=== PATIENT | female | born 1990 | race Caucasian/White ===

== ENCOUNTER 2016-03-05 08:51 | Emergency (ER) | payer OTHER ==
[~2016-03-05] VITALS: Ht 154.9 cm; Wt 81.6 kg
[~2016-03-05 08:51] MED LIST: BACTRIM DS 8001 TA1 PO; CARDIZEM CD120 MG PO; COLACE100 MG PO; FERROUS SULFATE1 GRA PO; HUMULIN 70/30 710 M1; HYDROCODONE BIT1 T11 PO; LANTUS100 U/ML SC; LEVEMIR10 ML SC; LISINOPRIL5 MG PO; LOMOTIL 0.025 M1 TA1 PO; MACROBID100 M1 PO; MOTRIN IB200 MG PO; NOVOLOG 70/30 M10 ML SC; NOVOLOG100 U/ML SC; PERCOCET 500 MG1 TAB; PYRIDIUM200 MG PO; SEPTRA DS 800 M1 TAB PO; ZOFRAN ODT4 MG SL
[2016-03-05] MEDS ORDERED: HUMULIN N100 UNIT/1 SQ ×2 (09:09→09:10)
[2016-03-05 11:17] VITALS: BP 148/86
== END 2016-03-05 11:53 | disposition home or self-care (01) ==
LOC: ED 08:51
DX: R51 Headache (principal); E11.9 Type 2 diabetes mellitus without complications; I10 Essential (primary) hypertension; F17.200 Nicotine dependence, unspecified, uncomplicated; Z79.4 Long term (current) use of insulin

== ENCOUNTER 2016-03-06 11:47 | Inpatient (IN) | payer OTHER ==
[~2016-03-06] VITALS: Ht 157.5 cm; Wt 88.0 kg
[~2016-03-06 11:47] MED LIST changes: +HUMULIN N100 UNIT/1 SQ
[2016-03-06 12:54] LABS: BASO # 0.1 10*3/uL (0.0-0.1); BASO % 0.6 % (0.0-1.0); EOS # 0.2 10*3/uL (0.0-0.4); EOS % 2.2 % (1.0-4.0); HEMATOCRIT 45.4 % (37.0-47.0); HEMOGLOBIN 15.8 g/dl (12.0-16.0); IG # 0.1 10*3/uL (0.0-0.1); LYMPH # 3.9 10*3/uL (1.3-4.4); LYMPH % 36.6 % (27.0-41.0); MEAN CELL VOLUME 79.5 fl (81.0-99.0); MEAN CORPUSCULAR HGB 27.7 pg (27.0-31.0); MEAN CORPUSCULAR HGB CONC 34.8 g/dl (33.0-37.0); MEAN PLATELET VOLUME 8.8 fl (9.6-12.3); MONO # 0.6 10*3/uL (0.1-1.0); MONO % 5.5 % (3.0-9.0); NEUT # 5.8 10*3/uL (2.3-7.9); NEUT % 54.5 % (47.0-73.0); PLATELET COUNT AUTOMATED 299 10*3/uL (130-400); RED BLOOD COUNT 5.71 10*6/uL (4.10-5.10); RED CELL DISTRI WIDTH 11.4 % (0-14.5); WHITE BLOOD COUNT 10.6 10*3/uL (4.8-10.8)
[2016-03-06 13:00] VITALS: BP 165/102
[2016-03-06 13:03] LABS: INTERNATIONAL NORM RATIO 0.9 (2.0-3.5); PROTHROMBIN TIME 9.7 SECONDS (9.0-12.4)
[2016-03-06 13:11] LABS: ALBUMIN 2.9 gm/dl (3.1-4.5); ALKALINE PHOSPHATASE 111 U/L (45-117); BILIRUBIN, TOTAL 0.2 mg/dl (0.2-1.0); BUN 16 mg/dl (7-24); CARBON DIOXIDE 29 mmol/L (21-32); CHLORIDE 104 mmol/L (98-107); EST GLOM FILT AFRICAN AMERICAN > 60 ml/min; GLUCOSE 106 mg/dL (65-99); MAGNESIUM 1.9 mg/dL (1.5-2.1); POTASSIUM 3.9 mmol/L (3.5-5.1); SGOT/AST 11 IU/L (3-35); SGPT/ALT 21 U/L (12-78); SODIUM 143 mmol/L (136-145); TOTAL PROTEIN 6.8 gm/dL (6.4-8.2)
[2016-03-06 13:12] VITALS: BP 155/91
[2016-03-06 13:14] LABS: TROPONIN I < 0.015 ng/ml (<0.5)
[2016-03-06 16:00] VITALS: BP 135/94
[2016-03-06 20:00] VITALS: BP 112/60
[2016-03-06 22:26] LABS: URINE AMPHETAMINES < 1000 (1000ng/ml); URINE BARBITURATES < 200 (200ng/ml); URINE COCAINE < 300 (300ng/ml)
[2016-03-07] VITALS: BP 137/83
[2016-03-07 07:35] LABS: BASO # 0.1 10*3/uL (0.0-0.1); BASO % 0.5 % (0.0-1.0); EOS # 0.1 10*3/uL (0.0-0.4); HEMATOCRIT 47.2 % (37.0-47.0); HEMOGLOBIN 16.1 g/dl (12.0-16.0); IG # 0.1 10*3/uL (0.0-0.1); LYMPH # 2.6 10*3/uL (1.3-4.4); MEAN CELL VOLUME 80.3 fl (81.0-99.0); MEAN CORPUSCULAR HGB 27.4 pg (27.0-31.0); MEAN CORPUSCULAR HGB CONC 34.1 g/dl (33.0-37.0); MEAN PLATELET VOLUME 9.1 fl (9.6-12.3); MONO # 0.6 10*3/uL (0.1-1.0); MONO % 4.4 % (3.0-9.0); NEUT # 9.5 10*3/uL (2.3-7.9); NEUT % 73.6 % (47.0-73.0); PLATELET COUNT AUTOMATED 297 10*3/uL (130-400); RED BLOOD COUNT 5.88 10*6/uL (4.10-5.10); RED CELL DISTRI WIDTH 11.5 % (0-14.5)
[2016-03-07 08:00] VITALS: BP 146/90
[2016-03-07 08:01] LABS: HEMOGLOBIN A1c 9.4 % (4.8-5.6)
[2016-03-07 08:17] LABS: BUN 20 mg/dl (7-24); CARBON DIOXIDE 30 mmol/L (21-32); CHLORIDE 103 mmol/L (98-107); CHOLESTEROL 186 mg/dL (<200); EST GLOM FILT AFRICAN AMERICAN > 60 ml/min; FREE T4 1.01 ng/dl (0.76-1.46); GLUCOSE 130 mg/dL (65-99); HDL CHOLESTEROL 51 mg/dl (40-60); LDL CHOLESTEROL 84 mg/dL (9-159); MAGNESIUM 1.9 mg/dL (1.5-2.1); POTASSIUM 4.1 mmol/L (3.5-5.1); SODIUM 140 mmol/L (136-145); THYROID STIM HORMONE (HS) 0.957 uIU/ml (0.358-4.75); TRIGLYCERIDES 257 mg/dl (<150); VLDL CHOLESTEROL 51 mg/dL (6-40)
[2016-03-07 08:33] LABS: FOLIC ACID 18.16 ng/mL (>5.38)
[2016-03-07 12:00] VITALS: BP 141/89
[2016-03-07] MEDS ORDERED: PRINIVIL10 MG PO (13:07)
== END 2016-03-07 13:36 | disposition home or self-care (01) | DRG 305 ==
LOC: ED 11:47 → 5E 14:09 → EDHOLD 14:09 → 5E 14:51
PROVIDERS: Internal Medicine; Registered Nurse
DX: I16.0 Hypertensive urgency (principal); E44.0 Moderate protein-calorie malnutrition; E66.9 Obesity, unspecified; Z98.51 Tubal ligation status; Z79.4 Long term (current) use of insulin; Z68.33 Body mass index [BMI] 33.0-33.9, adult

== ENCOUNTER → 2016-03-10 | Outpatient (CLI) | payer OTHER ==
[~2016-03-10] MED LIST changes: +PRINIVIL10 MG PO
== END | disposition home or self-care (01) ==
LOC: RESCLI 01:34
DX: I10 Essential (primary) hypertension (principal); E10.65 Type 1 diabetes mellitus with hyperglycemia; E78.5 Hyperlipidemia, unspecified

== ENCOUNTER → 2016-06-24 | Outpatient (CLI) | payer OTHER | END | disposition home or self-care (01) | LOC: RESCLI 06-23 01:04 | DX: E10.65 Type 1 diabetes mellitus with hyperglycemia (principal); I10 Essential (primary) hypertension; E78.5 Hyperlipidemia, unspecified; E55.9 Vitamin D deficiency, unspecified; R53.83 Other fatigue ==

== ENCOUNTER 2016-12-14 18:56 | Emergency (ER) | payer OTHER ==
[~2016-12-14] VITALS: Ht 152.4 cm; Wt 75.7 kg
[2016-12-14 19:46] LABS: BASO % 0.3 % (0.0-1.0); EOS % 0.3 % (1.0-4.0); HEMATOCRIT 43.8 % (37.0-47.0); HEMOGLOBIN 15.3 g/dl (12.0-16.0); LYMPH # 2.2 10*3/uL (1.3-4.4); LYMPH % 23.4 % (27.0-41.0); MEAN CELL VOLUME 80.1 fl (81.0-99.0); MEAN CORPUSCULAR HGB CONC 34.9 g/dl (33.0-37.0); MEAN PLATELET VOLUME 9.3 fl (9.6-12.3); MONO # 0.4 10*3/uL (0.1-1.0); MONO % 4.5 % (3.0-9.0); NEUT # 6.6 10*3/uL (2.3-7.9); NEUT % 70.7 % (47.0-73.0); PLATELET COUNT AUTOMATED 293 10*3/uL (130-400); RED BLOOD COUNT 5.47 10*6/uL (4.10-5.10); RED CELL DISTRI WIDTH 11.4 % (0-14.5); WHITE BLOOD COUNT 9.3 10*3/uL (4.8-10.8)
[2016-12-14 20:00] LABS: ALBUMIN 2.3 gm/dl (3.1-4.5); ALKALINE PHOSPHATASE 120 U/L (45-117); BUN 14 mg/dl (7-24); CHLORIDE 98 mmol/L (98-107); CREATININE 1.22 mg/dL (0.55-1.02); LIPASE 232 U/L (73-393); POTASSIUM 3.8 mmol/L (3.5-5.1); SGOT/AST 13 IU/L (3-35); SGPT/ALT 21 U/L (12-78); SODIUM 132 mmol/L (136-145); TOTAL PROTEIN 6.3 gm/dL (6.4-8.2)
[2016-12-14 20:14] LABS: BILIRUBIN NEGATIVE (NEGATIVE); BLOOD 1+ (NEGATIVE); CLARITY CLEAR (CLEAR); COLOR STRAW (YELLOW); GLUCOSE 3+ (NEGATIVE); KETONE NEGATIVE (NEGATIVE); LEUKO ESTERASE NEGATIVE (NEGATIVE); NITRITE NEGATIVE (NEGATIVE); PH 5.5 (5.0-9.0); SPECIFIC GRAVITY <= 1.005 (1.005-1.030); UROBILINOGEN 0.2 E.U./dl (0.2-1.0)
[2016-12-14 20:23] LABS: BACTERIA TRACE
[2016-12-14 21:04] VITALS: BP 126/85
== END 2016-12-14 22:09 | disposition home or self-care (01) ==
LOC: ED 18:56
PROVIDERS: Emergency Medicine Emergency Medical Services
DX: E10.65 Type 1 diabetes mellitus with hyperglycemia (principal); R80.9 Proteinuria, unspecified; I10 Essential (primary) hypertension; F17.200 Nicotine dependence, unspecified, uncomplicated; Z79.4 Long term (current) use of insulin; Z98.51 Tubal ligation status

== ENCOUNTER 2017-01-18 14:00 | Emergency (ER) | payer OTHER ==
[~2017-01-18] VITALS: Ht 154.9 cm; Wt 80.3 kg
[2017-01-18 14:08] VITALS: BP 138/90
[2017-01-18 14:51] LABS: BASO # 0.1 10*3/uL (0.0-0.1); BASO % 0.8 % (0.0-1.0); EOS # 0.2 10*3/uL (0.0-0.4); EOS % 2.3 % (1.0-4.0); HEMATOCRIT 42.9 % (37.0-47.0); LYMPH # 1.9 10*3/uL (1.3-4.4); MEAN CELL VOLUME 80.5 fl (81.0-99.0); MEAN CORPUSCULAR HGB 28.1 pg (27.0-31.0); MONO # 0.4 10*3/uL (0.1-1.0); MONO % 5.5 % (3.0-9.0); NEUT # 5.1 10*3/uL (2.3-7.9); PLATELET COUNT AUTOMATED 287 10*3/uL (130-400); RED BLOOD COUNT 5.33 10*6/uL (4.10-5.10); RED CELL DISTRI WIDTH 11.6 % (0-14.5); WHITE BLOOD COUNT 7.7 10*3/uL (4.8-10.8)
[2017-01-18] MEDS ORDERED: TOUJEO SOL300 UNIT/1 SQ (15:03)
[2017-01-18] MEDS ORDERED: NOVOLOG10 ML IV (15:03)
[2017-01-18 15:08] LABS: ALBUMIN 2.3 gm/dl (3.1-4.5); ALKALINE PHOSPHATASE 138 U/L (45-117); BUN 12 mg/dl (7-24); CHLORIDE 97 mmol/L (98-107); POTASSIUM 3.7 mmol/L (3.5-5.1); SGOT/AST 14 IU/L (3-35); SGPT/ALT 26 U/L (12-78); SODIUM 134 mmol/L (136-145)
== END 2017-01-18 15:48 | disposition home or self-care (01) ==
LOC: ED 14:00
PROVIDERS: Registered Nurse
DX: E10.65 Type 1 diabetes mellitus with hyperglycemia (principal); F17.200 Nicotine dependence, unspecified, uncomplicated; Z98.51 Tubal ligation status; Z79.4 Long term (current) use of insulin

== ENCOUNTER 2017-02-21 14:36 | Emergency (ER) | payer OTHER ==
[~2017-02-21] VITALS: Ht 154.9 cm; Wt 78.5 kg
[~2017-02-21 14:36] MED LIST changes: +NOVOLOG10 ML IV; +TOUJEO SOL300 UNIT/1 SQ
[2017-02-21 15:24] LABS: BILIRUBIN NEGATIVE (NEGATIVE); BLOOD 1+ (NEGATIVE); CLARITY CLEAR (CLEAR); COLOR YELLOW (YELLOW); GLUCOSE 3+ (NEGATIVE); KETONE NEGATIVE (NEGATIVE); LEUKO ESTERASE NEGATIVE (NEGATIVE); NITRITE NEGATIVE (NEGATIVE); SPECIFIC GRAVITY <= 1.005 (1.005-1.030); UROBILINOGEN 0.2 E.U./dl (0.2-1.0)
[2017-02-21 15:33] LABS: BASO # 0.1 10*3/uL (0.0-0.1); BASO % 0.7 % (0.0-1.0); EOS # 0.1 10*3/uL (0.0-0.4); EOS % 1.4 % (1.0-4.0); HEMATOCRIT 45.2 % (37.0-47.0); HEMOGLOBIN 16.2 g/dl (12.0-16.0); LYMPH # 2.4 10*3/uL (1.3-4.4); LYMPH % 23.3 % (27.0-41.0); MEAN CELL VOLUME 79.6 fl (81.0-99.0); MEAN CORPUSCULAR HGB 28.5 pg (27.0-31.0); MEAN CORPUSCULAR HGB CONC 35.8 g/dl (33.0-37.0); MEAN PLATELET VOLUME 9.2 fl (9.6-12.3); MONO # 0.5 10*3/uL (0.1-1.0); NEUT % 68.9 % (47.0-73.0); PLATELET COUNT AUTOMATED 328 10*3/uL (130-400); RED BLOOD COUNT 5.68 10*6/uL (4.10-5.10); RED CELL DISTRI WIDTH 11.6 % (0-14.5); WHITE BLOOD COUNT 10.1 10*3/uL (4.8-10.8)
[2017-02-21 15:40] LABS: BACTERIA 1+; EPITHELIAL CELLS 0-2; WBC 0-2 wbc/hpf (0-5)
[2017-02-21 15:47] LABS: ALBUMIN 2.3 gm/dl (3.1-4.5); ALKALINE PHOSPHATASE 166 U/L (45-117); BUN 21 mg/dl (7-24); CHLORIDE 94 mmol/L (98-107); POTASSIUM 4.3 mmol/L (3.5-5.1); SGOT/AST 39 IU/L (3-35); SGPT/ALT 47 U/L (12-78); SODIUM 131 mmol/L (136-145); TOTAL PROTEIN 6.8 gm/dL (6.4-8.2)
[2017-02-21] MEDS ORDERED: AMOXICILLIN500 M3 PO (16:52)
[2017-02-21 18:25] VITALS: BP 150/89
== END 2017-02-21 18:09 | disposition home or self-care (01) ==
LOC: ED 14:36
PROVIDERS: Physician Assistant
DX: J02.9 Acute pharyngitis, unspecified (principal); E10.10 Type 1 diabetes mellitus with ketoacidosis without coma; E10.65 Type 1 diabetes mellitus with hyperglycemia; I10 Essential (primary) hypertension; F17.200 Nicotine dependence, unspecified, uncomplicated; Z79.4 Long term (current) use of insulin

== ENCOUNTER 2017-03-20 17:53 | Emergency (ER) | payer OTHER ==
[~2017-03-20] VITALS: Ht 157.4 cm; Wt 76.2 kg
[~2017-03-20 17:53] MED LIST changes: +AMOXICILLIN500 M3 PO
[2017-03-20 18:07] VITALS: BP 150/94
[2017-03-20] MEDS ORDERED: PENICILLIN VK500 MG PO (18:18)
[2017-03-20] MEDS ORDERED: NAPROSYN500 MG PO (18:18)
[2017-03-20] MEDS ORDERED: ZOFRAN4 MG PO (18:18)
== END 2017-03-20 18:28 | disposition home or self-care (01) ==
LOC: ED 17:53
DX: K04.7 Periapical abscess without sinus (principal); E11.65 Type 2 diabetes mellitus with hyperglycemia; I10 Essential (primary) hypertension; E66.9 Obesity, unspecified; Z68.39 Body mass index [BMI] 39.0-39.9, adult; Z79.4 Long term (current) use of insulin; Z98.51 Tubal ligation status; Z98.890 Other specified postprocedural states; Z79.899 Other long term (current) drug therapy

== ENCOUNTER 2017-06-24 06:23 | Inpatient (IN) | payer OTHER ==
[~2017-06-24] VITALS: Ht 162.5 cm; Wt 87.5 kg
[~2017-06-24 06:23] MED LIST changes: +NAPROSYN500 MG PO; +PENICILLIN VK500 MG PO; +ZOFRAN4 MG PO
[2017-06-24 06:26] VITALS: BP 157/112
[2017-06-24 07:01] LABS: BASO # 0.1 10*3/uL (0.0-0.1); BASO % 0.5 % (0.0-1.0); EOS # 0.2 10*3/uL (0.0-0.4); EOS % 1.2 % (1.0-4.0); HEMATOCRIT 46.3 % (37.0-47.0); HEMOGLOBIN 16.3 g/dl (12.0-16.0); LYMPH # 3.3 10*3/uL (1.3-4.4); LYMPH % 25.1 % (27.0-41.0); MEAN CELL VOLUME 80.1 fl (81.0-99.0); MEAN CORPUSCULAR HGB 28.2 pg (27.0-31.0); MEAN CORPUSCULAR HGB CONC 35.2 g/dl (33.0-37.0); MONO # 0.6 10*3/uL (0.1-1.0); MONO % 4.9 % (3.0-9.0); NEUT # 8.8 10*3/uL (2.3-7.9); NEUT % 67.8 % (47.0-73.0); PLATELET COUNT AUTOMATED 376 10*3/uL (130-400); RED BLOOD COUNT 5.78 10*6/uL (4.10-5.10); RED CELL DISTRI WIDTH 11.4 % (0-14.5); WHITE BLOOD COUNT 12.9 10*3/uL (4.8-10.8)
[2017-06-24 07:08] LABS: BILIRUBIN NEGATIVE (NEGATIVE); BLOOD 2+ (NEGATIVE); CLARITY SL CLOUDY (CLEAR); COLOR YELLOW (YELLOW); GLUCOSE 3+ (NEGATIVE); KETONE 1+ (NEGATIVE); LEUKO ESTERASE NEGATIVE (NEGATIVE); NITRITE NEGATIVE (NEGATIVE); PH 5.5 (5.0-9.0); UROBILINOGEN 0.2 E.U./dl (0.2-1.0)
[2017-06-24 07:18] VITALS: BP 152/104
[2017-06-24 07:21] LABS: ALBUMIN 2.9 gm/dl (3.1-4.5); ALKALINE PHOSPHATASE 157 U/L (45-117); BUN 21 mg/dl (7-24); CHLORIDE 96 mmol/L (98-107); CREATININE 1.23 mg/dL (0.55-1.02); POTASSIUM 3.7 mmol/L (3.5-5.1); SGOT/AST 20 IU/L (3-35); SGPT/ALT 24 U/L (12-78); SODIUM 132 mmol/L (136-145); TOTAL PROTEIN 7.3 gm/dL (6.4-8.2)
[2017-06-24 07:22] LABS: BETA-HCG, QUANT < 1.0 mIU/mL (1-3); TROPONIN I < 0.015 ng/ml (<0.045)
[2017-06-24 07:43] LABS: BACTERIA 1+; EPITHELIAL CELLS 20-30; RBC 16-20 rbc/hpf (0-2)
[2017-06-24 08:24] VITALS: BP 147/86
[2017-06-24] MEDS ORDERED: HUMALOG100 UNIT/1 SQ ×2 (08:56→08:57)
[2017-06-24] MEDS ORDERED: ZESTRIL10 MG PO (08:58)
[2017-06-24] MEDS ORDERED: TOUJEO SOL300 UNIT/1 SQ (08:58)
[2017-06-24 10:28] LABS: BUN 17 mg/dl (7-24); CHLORIDE 105 mmol/L (98-107); CREATININE 0.79 mg/dL (0.55-1.02); POTASSIUM 3.5 mmol/L (3.5-5.1); SODIUM 140 mmol/L (136-145)
[2017-06-24] MEDS ORDERED: ZOFRAN4 MG PO (16:17)
== END 2017-06-24 16:35 | disposition home or self-care (01) | DRG 682 ==
LOC: ED 06:23 → ICCU 07:49 → EDHOLD 07:49 → ICCU 08:06 → 4E 11:24
PROVIDERS: Internal Medicine; Student in an Organized Health Care Education/Training Program
DX: N17.0 Acute kidney failure with tubular necrosis (principal); E10.10 Type 1 diabetes mellitus with ketoacidosis without coma; R65.11 Systemic inflammatory response syndrome (SIRS) of non-infectious origin with acute organ dysfunction; E44.0 Moderate protein-calorie malnutrition; D75.1 Secondary polycythemia; E87.1 Hypo-osmolality and hyponatremia; E86.0 Dehydration; D72.829 Elevated white blood cell count, unspecified; R82.4 Acetonuria; I10 Essential (primary) hypertension; E66.9 Obesity, unspecified; Z98.51 Tubal ligation status; Z72.0 Tobacco use; Z79.4 Long term (current) use of insulin; Z79.899 Other long term (current) drug therapy; Z71.6 Tobacco abuse counseling; Z68.33 Body mass index [BMI] 33.0-33.9, adult

== ENCOUNTER 2017-10-20 13:30 | Emergency (ER) | payer OTHER ==
[~2017-10-20] VITALS: Ht 154.9 cm; Wt 83.0 kg
--- NOTE | ~2017-10-20 | EKG ---
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
[~2017-10-20 13:30] MED LIST changes: +HUMALOG100 UNIT/1 SQ; +ZESTRIL10 MG PO
[2017-10-20 14:30] LABS: BASO % 0.6 % (0.0-1.0); EOS # 0.1 10*3/uL (0.0-0.4); EOS % 1.2 % (1.0-4.0); LYMPH % 15.5 % (27.0-41.0); MEAN CELL VOLUME 81.1 fl (81.0-99.0); MEAN CORPUSCULAR HGB 28.3 pg (27.0-31.0); MEAN CORPUSCULAR HGB CONC 34.9 g/dl (33.0-37.0); MEAN PLATELET VOLUME 8.9 fl (9.6-12.3); MONO # 0.5 10*3/uL (0.1-1.0); MONO % 7.6 % (3.0-9.0); NEUT # 4.9 10*3/uL (2.3-7.9); NEUT % 74.5 % (47.0-73.0); PLATELET COUNT AUTOMATED 262 10*3/uL (130-400); RED CELL DISTRI WIDTH 11.5 % (0-14.5); WHITE BLOOD COUNT 6.6 10*3/uL (4.8-10.8)
[2017-10-20 14:37] LABS: BILIRUBIN NEGATIVE (NEGATIVE); BLOOD 2+ (NEGATIVE); CLARITY CLEAR (CLEAR); COLOR YELLOW (YELLOW); GLUCOSE TRACE (NEGATIVE); KETONE NEGATIVE (NEGATIVE); LEUKO ESTERASE NEGATIVE (NEGATIVE); NITRITE NEGATIVE (NEGATIVE); UROBILINOGEN 0.2 E.U./dl (0.2-1.0)
[2017-10-20 14:39] LABS: ACT PARTIAL THROMBO TIME 22.5 SECONDS (20.8-31.5); INTERNATIONAL NORM RATIO 0.9 (2.0-3.5)
[2017-10-20 14:48] LABS: ALBUMIN 2.5 gm/dl (3.1-4.5); ALKALINE PHOSPHATASE 125 U/L (45-117); BUN 21 mg/dl (7-24); CHLORIDE 106 mmol/L (98-107); CREATININE 1.03 mg/dL (0.55-1.02); POTASSIUM 4.1 mmol/L (3.5-5.1); SGOT/AST 16 IU/L (3-35); SGPT/ALT 19 U/L (12-78); SODIUM 138 mmol/L (136-145); TOTAL PROTEIN 6.8 gm/dL (6.4-8.2)
[2017-10-20 14:53] LABS: EPITHELIAL CELLS 40-45; RBC 16-20 rbc/hpf (0-2)
[2017-10-20 14:54] LABS: BACTERIA TRACE; WBC 0-2 wbc/hpf (0-5)
[2017-10-20 14:55] LABS: TROPONIN I < 0.015 ng/ml (<0.045)
[2017-10-20] MEDS ORDERED: Zofran4 MG SL (17:06)
[2017-10-20 17:14] VITALS: BP 144/61
[2017-10-23] MEDS ORDERED: Fioricet 325 MG1 TAB PO (20:35)
[2017-10-23] MEDS ORDERED: Zofran4 MG PO (20:36)
== END 2017-10-20 17:07 | disposition home or self-care (01) ==
LOC: ED 13:30
PROVIDERS: Nurse Practitioner Family
DX: R51 Headache (principal); R42 Dizziness and giddiness; R11.2 Nausea with vomiting, unspecified; R20.0 Anesthesia of skin; R68.83 Chills (without fever); L56.8 Other specified acute skin changes due to ultraviolet radiation; Z79.899 Other long term (current) drug therapy

== ENCOUNTER 2017-10-24 02:47 | Emergency (ER) | payer OTHER ==
[~2017-10-24] VITALS: Ht 154.9 cm; Wt 83.9 kg
[~2017-10-24 02:47] MED LIST changes: +Fioricet 325 MG1 TAB PO; +Zofran4 MG PO; +Zofran4 MG SL
[2017-10-24 04:05] LABS: BASO % 0.4 % (0.0-1.0); EOS % 0.4 % (1.0-4.0); HEMATOCRIT 41.7 % (37.0-47.0); HEMOGLOBIN 14.5 g/dl (12.0-16.0); LYMPH # 1.9 10*3/uL (1.3-4.4); LYMPH % 17.8 % (27.0-41.0); MEAN CORPUSCULAR HGB 27.8 pg (27.0-31.0); MEAN CORPUSCULAR HGB CONC 34.8 g/dl (33.0-37.0); MEAN PLATELET VOLUME 9.1 fl (9.6-12.3); MONO # 0.5 10*3/uL (0.1-1.0); MONO % 5.2 % (3.0-9.0); NEUT # 7.9 10*3/uL (2.3-7.9); NEUT % 75.8 % (47.0-73.0); PLATELET COUNT AUTOMATED 260 10*3/uL (130-400); RED BLOOD COUNT 5.21 10*6/uL (4.10-5.10); RED CELL DISTRI WIDTH 11.3 % (0-14.5); WHITE BLOOD COUNT 10.4 10*3/uL (4.8-10.8)
[2017-10-24 04:22] LABS: ALBUMIN 2.4 gm/dl (3.1-4.5); ALKALINE PHOSPHATASE 120 U/L (45-117); BUN 16 mg/dl (7-24); CHLORIDE 104 mmol/L (98-107); CREATININE 0.98 mg/dL (0.55-1.02); POTASSIUM 3.8 mmol/L (3.5-5.1); SGOT/AST 19 IU/L (3-35); SGPT/ALT 18 U/L (12-78); SODIUM 136 mmol/L (136-145); TOTAL PROTEIN 6.6 gm/dL (6.4-8.2)
[2017-10-24 05:20] VITALS: BP 126/65
== END 2017-10-24 05:13 | disposition home or self-care (01) ==
LOC: ED 02:47
PROVIDERS: Emergency Medicine Emergency Medical Services
DX: B34.9 Viral infection, unspecified (principal); G43.909 Migraine, unspecified, not intractable, without status migrainosus; E11.9 Type 2 diabetes mellitus without complications; E66.9 Obesity, unspecified; F17.200 Nicotine dependence, unspecified, uncomplicated; Z79.899 Other long term (current) drug therapy; Z79.4 Long term (current) use of insulin; Z68.34 Body mass index [BMI] 34.0-34.9, adult

== ENCOUNTER 2017-12-15 13:57 | Emergency (ER) | payer OTHER ==
[~2017-12-15] VITALS: Ht 157.4 cm; Wt 77.1 kg
[2017-12-15 15:44] LABS: BILIRUBIN NEGATIVE (NEGATIVE); BLOOD 2+ (NEGATIVE); CLARITY CLEAR (CLEAR); COLOR YELLOW (YELLOW); GLUCOSE 3+ (NEGATIVE); KETONE NEGATIVE (NEGATIVE); LEUKO ESTERASE NEGATIVE (NEGATIVE); NITRITE NEGATIVE (NEGATIVE); SPECIFIC GRAVITY 1.015 (1.005-1.030); UROBILINOGEN 0.2 E.U./dl (0.2-1.0)
[2017-12-15 16:19] LABS: BASO # 0.1 10*3/uL (0.0-0.1); BASO % 0.7 % (0.0-1.0); EOS # 0.3 10*3/uL (0.0-0.4); EOS % 2.7 % (1.0-4.0); HEMATOCRIT 46.8 % (37.0-47.0); HEMOGLOBIN 16.7 g/dl (12.0-16.0); LYMPH # 2.9 10*3/uL (1.3-4.4); MEAN CELL VOLUME 79.6 fl (81.0-99.0); MEAN CORPUSCULAR HGB 28.4 pg (27.0-31.0); MEAN CORPUSCULAR HGB CONC 35.7 g/dl (33.0-37.0); MEAN PLATELET VOLUME 9.1 fl (9.6-12.3); MONO # 0.5 10*3/uL (0.1-1.0); MONO % 5.3 % (3.0-9.0); NEUT # 6.4 10*3/uL (2.3-7.9); NEUT % 62.8 % (47.0-73.0); PLATELET COUNT AUTOMATED 336 10*3/uL (130-400); RED BLOOD COUNT 5.88 10*6/uL (4.10-5.10); RED CELL DISTRI WIDTH 11.7 % (0-14.5); WHITE BLOOD COUNT 10.2 10*3/uL (4.8-10.8)
[2017-12-15 16:24] LABS: BACTERIA TRACE; RBC 31-40 rbc/hpf (0-2)
[2017-12-15 16:25] LABS: RED BLOOD CELL CAST 0-2
[2017-12-15 16:36] LABS: ALBUMIN 2.4 gm/dl (3.1-4.5); ALKALINE PHOSPHATASE 136 U/L (45-117); BUN 21 mg/dl (7-24); CHLORIDE 100 mmol/L (98-107); CREATININE 1.02 mg/dL (0.55-1.02); SGOT/AST 17 IU/L (3-35); SGPT/ALT 22 U/L (12-78); SODIUM 135 mmol/L (136-145); TOTAL PROTEIN 6.8 gm/dL (6.4-8.2)
[2017-12-15 17:59] VITALS: BP 161/100
== END 2017-12-15 17:54 | disposition home or self-care (01) ==
LOC: ED 13:57
PROVIDERS: Nurse Practitioner
DX: H53.8 Other visual disturbances (principal); H43.392 Other vitreous opacities, left eye; I10 Essential (primary) hypertension; E10.9 Type 1 diabetes mellitus without complications; F17.200 Nicotine dependence, unspecified, uncomplicated; Z79.899 Other long term (current) drug therapy; Z79.4 Long term (current) use of insulin

== ENCOUNTER 2017-12-28 20:05 | Emergency (ER) | payer SELFPAY ==
[~2017-12-28] VITALS: Ht 157.4 cm; Wt 81.6 kg
[2017-12-28 20:07] VITALS: BP 168/109
[2017-12-28] MEDS ORDERED: CLINDAMYCIN150 MG PO (20:08)
[2017-12-28] MEDS ORDERED: TYLENOL325 M1 PO (20:08)
== END 2017-12-28 20:33 | disposition home or self-care (01) ==
LOC: ED 20:05
DX: K02.9 Dental caries, unspecified (principal); E11.9 Type 2 diabetes mellitus without complications; E66.9 Obesity, unspecified; G43.909 Migraine, unspecified, not intractable, without status migrainosus; F17.200 Nicotine dependence, unspecified, uncomplicated; Z79.899 Other long term (current) drug therapy; Z79.4 Long term (current) use of insulin; Z98.51 Tubal ligation status; Z68.30 Body mass index [BMI] 30.0-30.9, adult

== ENCOUNTER → 2018-01-19 | Outpatient (CLI) | payer SELFPAY ==
[~2018-01-19] MED LIST changes: +CLINDAMYCIN150 MG PO; +TYLENOL325 M1 PO
== END | disposition home or self-care (01) ==
LOC: RESCLI 04:19
DX: I10 Essential (primary) hypertension (principal); E10.65 Type 1 diabetes mellitus with hyperglycemia; E66.01 Morbid (severe) obesity due to excess calories; F32.9 Major depressive disorder, single episode, unspecified; Z79.899 Other long term (current) drug therapy; Z88.8 Allergy status to other drugs, medicaments and biological substances

== ENCOUNTER → 2018-03-17 | Outpatient (CLI) | payer OTHER | END | disposition home or self-care (01) | LOC: RESCLI 02:48 | DX: I10 Essential (primary) hypertension (principal); E10.8 Type 1 diabetes mellitus with unspecified complications; R68.89 Other general symptoms and signs; J40 Bronchitis, not specified as acute or chronic; E66.01 Morbid (severe) obesity due to excess calories; F32.9 Major depressive disorder, single episode, unspecified; R00.0 Tachycardia, unspecified; E78.5 Hyperlipidemia, unspecified; Z79.899 Other long term (current) drug therapy ==

== ENCOUNTER 2018-03-26 19:22 | Inpatient (IN) | payer OTHER ==
[~2018-03-26] VITALS: Ht 152.4 cm; Wt 81.2 kg
[2018-03-26 11:40] VITALS: BP 137/90
[2018-03-26 19:26] VITALS: BP 145/81
[2018-03-26 20:32] LABS: ALBUMIN 2.4 gm/dl (3.1-4.5); ALKALINE PHOSPHATASE 169 U/L (45-117); BUN 20 mg/dl (7-24); CHLORIDE 102 mmol/L (98-107); CREATININE 1.09 mg/dL (0.55-1.02); LIPASE 107 U/L (73-393); POTASSIUM 4.5 mmol/L (3.5-5.1); SGOT/AST 9 IU/L (3-35); SGPT/ALT 21 U/L (12-78); SODIUM 134 mmol/L (136-145); TOTAL PROTEIN 6.7 gm/dL (6.4-8.2)
[2018-03-26 20:34] LABS: BETA-HCG, QUANT < 1.0 mIU/mL (1-3); TROPONIN I < 0.015 ng/ml (<0.045)
[2018-03-26 20:37] LABS: THYROID STIM HORMONE (HS) 0.988 uIU/ml (0.358-4.75)
[2018-03-26 21:03] LABS: BILIRUBIN NEGATIVE (NEGATIVE); BLOOD 1+ (NEGATIVE); CLARITY CLEAR (CLEAR); COLOR YELLOW (YELLOW); GLUCOSE 3+ (NEGATIVE); KETONE NEGATIVE (NEGATIVE); LEUKO ESTERASE NEGATIVE (NEGATIVE); NITRITE NEGATIVE (NEGATIVE); PH 5.5 (5.0-9.0); SPECIFIC GRAVITY 1.025 (1.005-1.030); UROBILINOGEN 0.2 E.U./dl (0.2-1.0)
[2018-03-26 21:12] LABS: BACTERIA TRACE
[2018-03-26 21:13] LABS: BASO # 0.1 10*3/uL (0.0-0.1); BASO % 0.5 % (0.0-1.0); EOS # 0.3 10*3/uL (0.0-0.4); HEMATOCRIT 45.8 % (37.0-47.0); HEMOGLOBIN 16.1 g/dl (12.0-16.0); LYMPH # 1.2 10*3/uL (1.3-4.4); MEAN CELL VOLUME 81.9 fl (81.0-99.0); MEAN CORPUSCULAR HGB 28.8 pg (27.0-31.0); MEAN CORPUSCULAR HGB CONC 35.2 g/dl (33.0-37.0); MEAN PLATELET VOLUME 9.3 fl (9.6-12.3); MONO # 0.6 10*3/uL (0.1-1.0); NEUT # 9.9 10*3/uL (2.3-7.9); NEUT % 81.4 % (47.0-73.0); PLATELET COUNT AUTOMATED 315 10*3/uL (130-400); RED BLOOD COUNT 5.59 10*6/uL (4.10-5.10); RED CELL DISTRI WIDTH 12.1 % (0-14.5); WHITE BLOOD COUNT 12.2 10*3/uL (4.8-10.8)
[2018-03-26 21:37] VITALS: BP 135/92
[2018-03-26 22:41] VITALS: BP 131/88
[2018-03-27 06:35] LABS: BASO # 0.1 10*3/uL (0.0-0.1); BASO % 0.6 % (0.0-1.0); EOS # 0.3 10*3/uL (0.0-0.4); EOS % 3.4 % (1.0-4.0); HEMATOCRIT 42.5 % (37.0-47.0); HEMOGLOBIN 14.6 g/dl (12.0-16.0); LYMPH # 2.2 10*3/uL (1.3-4.4); LYMPH % 25.7 % (27.0-41.0); MEAN CELL VOLUME 83.3 fl (81.0-99.0); MEAN CORPUSCULAR HGB 28.6 pg (27.0-31.0); MEAN CORPUSCULAR HGB CONC 34.4 g/dl (33.0-37.0); MEAN PLATELET VOLUME 8.9 fl (9.6-12.3); MONO # 0.5 10*3/uL (0.1-1.0); MONO % 5.6 % (3.0-9.0); NEUT # 5.5 10*3/uL (2.3-7.9); NEUT % 63.4 % (47.0-73.0); PLATELET COUNT AUTOMATED 272 10*3/uL (130-400); RED CELL DISTRI WIDTH 12.2 % (0-14.5); WHITE BLOOD COUNT 8.6 10*3/uL (4.8-10.8)
[2018-03-27 07:02] LABS: ALBUMIN 2.3 gm/dl (3.1-4.5); BUN 14 mg/dl (7-24); CHLORIDE 106 mmol/L (98-107); CHOLESTEROL 296 mg/dL (<200); CREATININE 0.89 mg/dL (0.55-1.02); POTASSIUM 3.8 mmol/L (3.5-5.1); SGOT/AST 14 IU/L (3-35); SGPT/ALT 21 U/L (12-78); SODIUM 138 mmol/L (136-145)
[2018-03-27 07:03] LABS: ACT PARTIAL THROMBO TIME 21.9 SECONDS (20.8-31.5); INTERNATIONAL NORM RATIO 0.9 (2.0-3.5)
[2018-03-27 07:09] LABS: ALKALINE PHOSPHATASE 148 U/L (45-117); FREE T4 0.82 ng/dl (0.76-1.46); HDL CHOLESTEROL 48 mg/dl (40-60); TOTAL PROTEIN 6.1 gm/dL (6.4-8.2); TRIGLYCERIDES 504 mg/dl (<150)
[2018-03-27 08:00] VITALS: BP 118/76
[2018-03-27 08:56] LABS: VITAMIN D, 25-HYDROXY 10.7 ng/mL (30-100)
[2018-03-27 12:00] VITALS: BP 136/83
[2018-03-27] MEDS ORDERED: ZOFRAN4 MG PO (14:39)
== END 2018-03-27 15:27 | disposition home or self-care (01) | DRG 871 ==
LOC: ED 19:22 → EDHOLD 23:20 → 5E 23:26
PROVIDERS: Emergency Medicine Emergency Medical Services; Family Medicine; ADMIT Internal Medicine
DX: A41.9 Sepsis, unspecified organism (principal); N17.0 Acute kidney failure with tubular necrosis; E43 Unspecified severe protein-calorie malnutrition; K52.9 Noninfective gastroenteritis and colitis, unspecified; R65.20 Severe sepsis without septic shock; R00.0 Tachycardia, unspecified; D72.829 Elevated white blood cell count, unspecified; E10.65 Type 1 diabetes mellitus with hyperglycemia; I10 Essential (primary) hypertension; E78.1 Pure hyperglyceridemia; E55.9 Vitamin D deficiency, unspecified; F17.210 Nicotine dependence, cigarettes, uncomplicated; E86.0 Dehydration; Z98.891 History of uterine scar from previous surgery; Z71.6 Tobacco abuse counseling; Z79.4 Long term (current) use of insulin; Z98.51 Tubal ligation status; Z68.35 Body mass index [BMI] 35.0-35.9, adult

== ENCOUNTER 2018-12-12 18:46 | Emergency (ER) | payer OTHER ==
[~2018-12-12] VITALS: Ht 157.4 cm; Wt 86.2 kg
[2018-12-12 20:23] VITALS: BP 164/88
[2018-12-12] MEDS ORDERED: CEPHALEXIN500 M1 PO (20:57)
== END 2018-12-12 20:59 | disposition home or self-care (01) ==
LOC: ED 18:46
DX: S02.2XXA Fracture of nasal bones, initial encounter for closed fracture (principal); S80.212A Abrasion, left knee, initial encounter; S80.211A Abrasion, right knee, initial encounter; E11.9 Type 2 diabetes mellitus without complications; Z23 Encounter for immunization; F17.200 Nicotine dependence, unspecified, uncomplicated; Z79.899 Other long term (current) drug therapy; Z79.4 Long term (current) use of insulin; W01.198A Fall on same level from slipping, tripping and stumbling with subsequent striking against other object, initial encounter; Y93.K1 Activity, walking an animal; Y92.89 Other specified places as the place of occurrence of the external cause; Y99.8 Other external cause status

== ENCOUNTER 2019-02-11 17:26 | Emergency (ER) | payer OTHER ==
[~2019-02-11] VITALS: Ht 154.9 cm; Wt 81.6 kg
[~2019-02-11 17:26] MED LIST changes: +CEPHALEXIN500 M1 PO
[2019-02-11 17:27] VITALS: BP 145/90
[2019-02-11] MEDS ORDERED: LEVOFLOXACIN500 MG PO (18:56)
== END 2019-02-11 18:59 | disposition home or self-care (01) ==
LOC: ED 17:26
DX: J18.9 Pneumonia, unspecified organism (principal); E11.9 Type 2 diabetes mellitus without complications; I10 Essential (primary) hypertension; Z79.4 Long term (current) use of insulin; Z79.899 Other long term (current) drug therapy

== ENCOUNTER 2019-02-16 01:44 | Emergency (ER) | payer OTHER ==
[~2019-02-16] VITALS: Ht 154.9 cm; Wt 81.6 kg
[~2019-02-16 01:44] MED LIST changes: +LEVOFLOXACIN500 MG PO
[2019-02-16 01:45] VITALS: BP 138/100
[2019-02-16] MEDS ORDERED: FLONASE ALLERG9.9 ML NAS (03:18)
[2019-02-16] MEDS ORDERED: PROVENTIL HFA6.7 GM INH (03:21)
== END 2019-02-16 03:45 | disposition home or self-care (01) ==
LOC: ED 01:44
DX: J20.9 Acute bronchitis, unspecified (principal); J01.00 Acute maxillary sinusitis, unspecified; I10 Essential (primary) hypertension; E10.9 Type 1 diabetes mellitus without complications; F17.210 Nicotine dependence, cigarettes, uncomplicated; Z79.4 Long term (current) use of insulin

== ENCOUNTER 2019-03-02 16:59 | Emergency (ER) | payer OTHER ==
[~2019-03-02] VITALS: Ht 154.9 cm; Wt 81.6 kg
[~2019-03-02 16:59] MED LIST changes: +FLONASE ALLERG9.9 ML NAS; +PROVENTIL HFA6.7 GM INH
[2019-03-02 18:08] VITALS: BP 130/86
[2019-03-02 18:40] LABS: BILIRUBIN NEGATIVE (NEGATIVE); BLOOD 1+ (NEGATIVE); CLARITY CLEAR (CLEAR); COLOR YELLOW (YELLOW); GLUCOSE 3+ (NEGATIVE); KETONE NEGATIVE (NEGATIVE); LEUKO ESTERASE NEGATIVE (NEGATIVE); NITRITE NEGATIVE (NEGATIVE); PH 6.5 (5.0-9.0); UROBILINOGEN 0.2 E.U./dl (0.2-1.0)
[2019-03-02 18:47] LABS: BASO % 0.4 % (0.0-1.0); EOS # 0.2 10*3/uL (0.0-0.4); EOS % 2.1 % (1.0-4.0); HEMATOCRIT 44.2 % (37.0-47.0); LYMPH # 1.3 10*3/uL (1.3-4.4); LYMPH % 13.2 % (27.0-41.0); MEAN CELL VOLUME 82.9 fl (81.0-99.0); MEAN CORPUSCULAR HGB 28.1 pg (27.0-31.0); MEAN CORPUSCULAR HGB CONC 33.9 g/dl (33.0-37.0); MONO # 0.5 10*3/uL (0.1-1.0); MONO % 5.3 % (3.0-9.0); NEUT # 7.5 10*3/uL (2.3-7.9); NEUT % 78.6 % (47.0-73.0); PLATELET COUNT AUTOMATED 287 10*3/uL (130-400); RED BLOOD COUNT 5.33 10*6/uL (4.10-5.10); WHITE BLOOD COUNT 9.6 10*3/uL (4.8-10.8)
[2019-03-02 18:48] LABS: VENOUS BLOOD GAS O2 SAT 99.6 % (40-85); VENOUS PH 7.467 (7.32-7.43)
[2019-03-02 18:58] LABS: ACT PARTIAL THROMBO TIME 24.6 SECONDS (20.0-32.1); INTERNATIONAL NORM RATIO 0.9 (2.0-3.5)
[2019-03-02 19:03] LABS: BACTERIA TRACE; RBC 16-20 rbc/hpf (0-2); WBC 0-2 wbc/hpf (0-5)
[2019-03-02 19:05] LABS: ALBUMIN 2.5 gm/dl (3.1-4.5); ALKALINE PHOSPHATASE 131 U/L (45-117); BUN 24 mg/dl (7-24); CHLORIDE 106 mmol/L (98-107); CREATININE 1.19 mg/dL (0.55-1.02); LIPASE 199 U/L (73-393); POTASSIUM 4.1 mmol/L (3.5-5.1); SGOT/AST 14 IU/L (3-35); SGPT/ALT 25 U/L (12-78); SODIUM 139 mmol/L (136-145); TOTAL PROTEIN 6.6 gm/dL (6.4-8.2)
[2019-03-02] MEDS ORDERED: ZOFRAN4 MG PO (19:56)
== END 2019-03-02 20:19 | disposition home or self-care (01) ==
LOC: ED 16:59
PROVIDERS: Physician Assistant
DX: A08.4 Viral intestinal infection, unspecified (principal); R11.2 Nausea with vomiting, unspecified; E11.22 Type 2 diabetes mellitus with diabetic chronic kidney disease; I12.9 Hypertensive chronic kidney disease with stage 1 through stage 4 chronic kidney disease, or unspecified chronic kidney disease; N18.3 Chronic kidney disease, stage 3 (moderate); F17.200 Nicotine dependence, unspecified, uncomplicated; Z79.4 Long term (current) use of insulin

== ENCOUNTER 2019-03-04 19:08 | Emergency (ER) | payer OTHER ==
[~2019-03-04] VITALS: Ht 154.9 cm; Wt 81.6 kg
[2019-03-04 19:17] VITALS: BP 140/74
[2019-03-04 20:14] LABS: BASO % 0.2 % (0.0-1.0); EOS # 0.2 10*3/uL (0.0-0.4); HEMATOCRIT 38.3 % (37.0-47.0); HEMOGLOBIN 12.9 g/dl (12.0-16.0); LYMPH # 2.9 10*3/uL (1.3-4.4); LYMPH % 29.8 % (27.0-41.0); MEAN CELL VOLUME 83.3 fl (81.0-99.0); MEAN CORPUSCULAR HGB CONC 33.7 g/dl (33.0-37.0); MEAN PLATELET VOLUME 8.9 fl (9.6-12.3); MONO # 0.7 10*3/uL (0.1-1.0); MONO % 6.7 % (3.0-9.0); NEUT # 5.9 10*3/uL (2.3-7.9); NEUT % 60.7 % (47.0-73.0); PLATELET COUNT AUTOMATED 272 10*3/uL (130-400); RED CELL DISTRI WIDTH 11.8 % (0-14.5); WHITE BLOOD COUNT 9.7 10*3/uL (4.8-10.8)
[2019-03-04 20:44] LABS: ALBUMIN 2.2 gm/dl (3.1-4.5); ALKALINE PHOSPHATASE 126 U/L (45-117); BUN 15 mg/dl (7-24); CHLORIDE 107 mmol/L (98-107); CREATININE 1.02 mg/dL (0.55-1.02); LIPASE 132 U/L (73-393); POTASSIUM 3.5 mmol/L (3.5-5.1); SGOT/AST 12 IU/L (3-35); SGPT/ALT 19 U/L (12-78); SODIUM 141 mmol/L (136-145); TOTAL PROTEIN 5.9 gm/dL (6.4-8.2)
[2019-03-04] MEDS ORDERED: COMPAZINE10 M1 PO (22:43)
== END 2019-03-04 22:59 | disposition home or self-care (01) ==
LOC: ED 19:08
PROVIDERS: Nurse Practitioner Family
DX: B34.9 Viral infection, unspecified (principal); R11.2 Nausea with vomiting, unspecified; I10 Essential (primary) hypertension; E10.9 Type 1 diabetes mellitus without complications; F17.200 Nicotine dependence, unspecified, uncomplicated; Z79.4 Long term (current) use of insulin; Z79.899 Other long term (current) drug therapy

== ENCOUNTER → 2019-03-31 | Outpatient (CLI) | payer OTHER ==
[~2019-03-31] MED LIST changes: +COMPAZINE10 M1 PO
[2019-03-31 17:02] LABS: BASO # 0.1 10*3/uL (0.0-0.1); BASO % 0.5 % (0.0-1.0); EOS # 0.2 10*3/uL (0.0-0.4); EOS % 1.9 % (1.0-4.0); HEMATOCRIT 42.2 % (37.0-47.0); HEMOGLOBIN 14.4 g/dl (12.0-16.0); LYMPH # 2.3 10*3/uL (1.3-4.4); LYMPH % 22.7 % (27.0-41.0); MEAN CELL VOLUME 82.3 fl (81.0-99.0); MEAN CORPUSCULAR HGB 28.1 pg (27.0-31.0); MEAN CORPUSCULAR HGB CONC 34.1 g/dl (33.0-37.0); MEAN PLATELET VOLUME 8.8 fl (9.6-12.3); MONO # 0.5 10*3/uL (0.1-1.0); MONO % 4.8 % (3.0-9.0); NEUT % 69.1 % (47.0-73.0); PLATELET COUNT AUTOMATED 360 10*3/uL (130-400); RED BLOOD COUNT 5.13 10*6/uL (4.10-5.10); RED CELL DISTRI WIDTH 11.9 % (0-14.5); WHITE BLOOD COUNT 10.2 10*3/uL (4.8-10.8)
[2019-03-31 17:12] LABS: BILIRUBIN NEGATIVE (NEGATIVE); BLOOD 3+ (NEGATIVE); CLARITY CLEAR (CLEAR); COLOR STRAW (YELLOW); GLUCOSE 2+ (NEGATIVE); KETONE NEGATIVE (NEGATIVE)
[2019-03-31 17:13] LABS: LEUKO ESTERASE NEGATIVE (NEGATIVE); NITRITE NEGATIVE (NEGATIVE); UROBILINOGEN 0.2 E.U./dl (0.2-1.0)
[2019-03-31 17:17] LABS: BACTERIA 1+; EPITHELIAL CELLS 15-20
[2019-03-31 17:19] LABS: URINE CREATININE RANDOM 59.9 mg/dL
[2019-03-31 17:23] LABS: ALBUMIN 2.6 gm/dl (3.1-4.5); CREATININE 1.29 mg/dL (0.55-1.02); POTASSIUM 4.5 mmol/L (3.5-5.1); TOTAL PROTEIN 6.8 gm/dL (6.4-8.2)
[2019-04-01 10:04] LABS: CREATININE,URINE 55.2 mg/dL (Not Estab.)
== END ==
LOC: LAB 16:39
PROVIDERS: Nurse Practitioner Family
DX: I10 Essential (primary) hypertension (principal); E10.65 Type 1 diabetes mellitus with hyperglycemia; E10.40 Type 1 diabetes mellitus with diabetic neuropathy, unspecified; E78.1 Pure hyperglyceridemia; D72.829 Elevated white blood cell count, unspecified; D58.2 Other hemoglobinopathies; E55.9 Vitamin D deficiency, unspecified; F32.9 Major depressive disorder, single episode, unspecified; F41.9 Anxiety disorder, unspecified; R94.4 Abnormal results of kidney function studies; R80.9 Proteinuria, unspecified; F17.210 Nicotine dependence, cigarettes, uncomplicated; Z71.6 Tobacco abuse counseling

== ENCOUNTER → 2019-12-08 | Outpatient (CLI) | payer OTHER ==
[2019-12-08 14:38] LABS: BASO # 0.1 10*3/uL (0.0-0.1); BASO % 0.6 % (0.0-1.0); EOS # 0.3 10*3/uL (0.0-0.4); EOS % 2.2 % (1.0-4.0); LYMPH # 3.2 10*3/uL (1.3-4.4); LYMPH % 27.6 % (27.0-41.0); MEAN CELL VOLUME 83.2 fl (81.0-99.0); MEAN CORPUSCULAR HGB CONC 33.6 g/dl (33.0-37.0); MEAN PLATELET VOLUME 9.2 fl (9.6-12.3); MONO # 0.7 10*3/uL (0.1-1.0); MONO % 5.6 % (3.0-9.0); NEUT # 7.3 10*3/uL (2.3-7.9); NEUT % 63.1 % (47.0-73.0); PLATELET COUNT AUTOMATED 355 10*3/uL (130-400); RED BLOOD COUNT 5.29 10*6/uL (4.10-5.10); RED CELL DISTRI WIDTH 12.5 % (0-14.5); WHITE BLOOD COUNT 11.6 10*3/uL (4.8-10.8)
[2019-12-08 14:39] LABS: BILIRUBIN Negative (Negative); BLOOD 1+ (Negative); CLARITY Cloudy (Clear); COLOR Yellow (Yellow); GLUCOSE 2+ (Negative); KETONE Negative (Negative); LEUKO ESTERASE Negative (Negative); NITRITE Negative (Negative); PH 5.5 (4.5-8.0); UROBILINOGEN 0.2 E.U./dl (0.0-1.0)
[2019-12-08 15:09] LABS: ALBUMIN 2.5 gm/dl (3.1-4.5); BUN 31 mg/dl (7-24); CHLORIDE 104 mmol/L (98-107); CHOLESTEROL 253 mg/dL (<200); CREATININE 1.25 mg/dL (0.55-1.02); HDL CHOLESTEROL 53 mg/dl (40-60); LDL CHOLESTEROL 115 mg/dL (9-159); POTASSIUM 3.9 mmol/L (3.5-5.1); SGOT/AST 17 IU/L (3-35); SGPT/ALT 25 U/L (12-78); SODIUM 138 mmol/L (136-145); TOTAL PROTEIN 6.9 gm/dL (6.4-8.2)
[2019-12-08 15:16] LABS: PTH INTACT 49.4 pg/mL (18.5-88.0); VITAMIN D, 25-HYDROXY 11.8 ng/mL (30-100)
[2019-12-08 15:18] LABS: ALKALINE PHOSPHATASE 143 U/L (45-117)
[2019-12-08 15:22] LABS: RBC 0-2 rbc/hpf (0-2)
[2019-12-08 15:23] LABS: BACTERIA 2+; EPITHELIAL CELLS 16-20
[2019-12-09 07:06] LABS: COMPLEMENT C4 40 mg/dL (14-44)
[2019-12-09 10:07] LABS: CREATININE,URINE 106.3 mg/dL (Not Estab.)
== END | disposition home or self-care (01) ==
LOC: LAB 13:24
PROVIDERS: ATTEND Internal Medicine Nephrology
DX: I12.9 Hypertensive chronic kidney disease with stage 1 through stage 4 chronic kidney disease, or unspecified chronic kidney disease (principal); E11.22 Type 2 diabetes mellitus with diabetic chronic kidney disease; N18.30 Chronic kidney disease, stage 3 unspecified; E83.9 Disorder of mineral metabolism, unspecified

== ENCOUNTER → 2019-12-10 | Outpatient (CLI) | payer OTHER | END | disposition home or self-care (01) | LOC: LAB 12:19 | PROVIDERS: ATTEND Internal Medicine Nephrology | DX: N18.30 Chronic kidney disease, stage 3 unspecified (principal) ==

== ENCOUNTER 2020-02-06 18:08 | Emergency (ER) | payer OTHER ==
[~2020-02-06] VITALS: Wt 88.5 kg
[2020-02-06 18:17] VITALS: BP 151/90
[2020-02-06 19:17] LABS: BASO % 0.2 % (0.0-1.0); EOS % 0.2 % (1.0-4.0); HEMATOCRIT 39.8 % (37.0-47.0); LYMPH # 0.8 10*3/uL (1.3-4.4); LYMPH % 13.1 % (27.0-41.0); MEAN CELL VOLUME 81.6 fl (81.0-99.0); MEAN CORPUSCULAR HGB 27.9 pg (27.0-31.0); MEAN CORPUSCULAR HGB CONC 34.2 g/dl (33.0-37.0); MONO # 0.4 10*3/uL (0.1-1.0); MONO % 6.7 % (3.0-9.0); NEUT # 4.6 10*3/uL (2.3-7.9); NEUT % 79.1 % (47.0-73.0); PLATELET COUNT AUTOMATED 237 10*3/uL (130-400); RED BLOOD COUNT 4.88 10*6/uL (4.10-5.10); WHITE BLOOD COUNT 5.8 10*3/uL (4.8-10.8)
[2020-02-06 19:31] LABS: ALBUMIN 2.6 gm/dl (3.1-4.5); CREATININE 1.79 mg/dL (0.55-1.02); POTASSIUM 4.1 mmol/L (3.5-5.1)
[2020-02-06] MEDS ORDERED: ZOFRAN4 MG PO ×2 (21:05)
== END 2020-02-06 22:45 | disposition home or self-care (01) ==
LOC: ED 18:08
PROVIDERS: Internal Medicine
DX: B34.9 Viral infection, unspecified (principal); Z20.828 Contact with and (suspected) exposure to other viral communicable diseases; Z79.4 Long term (current) use of insulin; Z87.891 Personal history of nicotine dependence

== ENCOUNTER 2020-02-08 15:16 | Inpatient (IN) | payer OTHER ==
[~2020-02-08] VITALS: Ht 157.4 cm; Wt 98.9 kg
[2020-02-08 16:29] LABS: BASO % 0.2 % (0.0-1.0); HEMATOCRIT 38.7 % (37.0-47.0); LYMPH # 1.1 10*3/uL (1.3-4.4); LYMPH % 18.1 % (27.0-41.0); MEAN CELL VOLUME 84.1 fl (81.0-99.0); MEAN CORPUSCULAR HGB 27.6 pg (27.0-31.0); MEAN CORPUSCULAR HGB CONC 32.8 g/dl (33.0-37.0); MEAN PLATELET VOLUME 9.6 fl (9.6-12.3); MONO # 0.3 10*3/uL (0.1-1.0); MONO % 4.5 % (3.0-9.0); NEUT # 4.6 10*3/uL (2.3-7.9); NEUT % 76.2 % (47.0-73.0); PLATELET COUNT AUTOMATED 212 10*3/uL (130-400); RED CELL DISTRI WIDTH 12.1 % (0-14.5)
[2020-02-08 16:54] LABS: ALBUMIN 2.1 gm/dl (3.1-4.5); CREATININE 2.11 mg/dL (0.55-1.02); POTASSIUM 4.7 mmol/L (3.5-5.1); TOTAL PROTEIN 6.1 gm/dL (6.4-8.2)
[2020-02-08] MEDS ORDERED: PREDNISONE20 M1 PO ×2 (16:54)
[2020-02-08] MEDS ORDERED: PROVENTIL HFA6.7 GM INH ×2 (16:54)
[2020-02-08] MEDS ORDERED: ZOFRAN4 MG PO ×2 (16:54)
[2020-02-08 17:17] LABS: BILIRUBIN Negative (Negative); BLOOD Trace-Lysed (Negative); CLARITY Clear (Clear); COLOR Yellow (Yellow); GLUCOSE 3+ (Negative); KETONE 1+ (Negative); LEUKO ESTERASE Negative (Negative); NITRITE Negative (Negative); PH 5.5 (4.5-8.0); SPECIFIC GRAVITY 1.025 (1.001-1.030); UROBILINOGEN 0.2 E.U./dl (0.0-1.0)
[2020-02-08 17:31] LABS: BACTERIA 4+; EPITHELIAL CELLS 16-20
[2020-02-08 17:45] VITALS: BP 129/70
[2020-02-08] MEDS ORDERED: LEVEMIR100 UNIT/1 SC (19:37)
[2020-02-08] MEDS ORDERED: INSULIN LI100 UNIT/2 SQ (19:38)
[2020-02-08] MEDS ORDERED: LISINOPRIL20 MG PO (19:39)
[2020-02-08] MEDS ORDERED: ATORVASTATIN CA40 M1 PO (19:40)
[2020-02-08] MEDS ORDERED: HYDROCHLOROTHIA25 M1 PO (19:40)
[2020-02-08 19:42] LABS: ABG BASE EXCESS -1.9 mmol/L (-2.0-2.0); ARTERIAL BLOOD GAS PH 7.41 (7.35-7.45)
--- NOTE | 2020-02-08 20:10 | NUR ---
PT BEDSIDE GLUCOSE AT THIS TIME IS 422. RESIDENT SCHOOL COUNSELOR CONTACTED AND STATES HE WILL ORDER 10 UNITS INSULIN AT THIS TIME.
[2020-02-09] VITALS (10 sets, daily range): BP systolic 118–148; BP diastolic 64–73
--- NOTE | 2020-02-09 04:03 | NUR ---
PT SLEEPING ON COT AT THIS TIME. POSITIONING FOR COMFORT. WILL CONTINUE TO MONITOR.
[2020-02-09 06:10] LABS: ALBUMIN 2.2 gm/dl (3.1-4.5); BASO % 0.2 % (0.0-1.0); CREATININE 1.98 mg/dL (0.55-1.02); HEMATOCRIT 37.2 % (37.0-47.0); LYMPH # 0.9 10*3/uL (1.3-4.4); LYMPH % 14.5 % (27.0-41.0); MEAN CORPUSCULAR HGB 27.9 pg (27.0-31.0); MEAN CORPUSCULAR HGB CONC 33.6 g/dl (33.0-37.0); MEAN PLATELET VOLUME 9.7 fl (9.6-12.3); MONO # 0.1 10*3/uL (0.1-1.0); NEUT # 5.3 10*3/uL (2.3-7.9); NEUT % 82.4 % (47.0-73.0); PLATELET COUNT AUTOMATED 241 10*3/uL (130-400); POTASSIUM 4.1 mmol/L (3.5-5.1); RED BLOOD COUNT 4.48 10*6/uL (4.10-5.10); RED CELL DISTRI WIDTH 12.1 % (0-14.5); WHITE BLOOD COUNT 6.4 10*3/uL (4.8-10.8)
[2020-02-09 06:18] LABS: THYROID STIM HORMONE (HS) 0.605 uIU/ml (0.358-4.75); TOTAL PROTEIN 6.4 gm/dL (6.4-8.2)
[2020-02-09 06:32] LABS: ACT PARTIAL THROMBO TIME 26.9 SECONDS (20.0-32.1); INTERNATIONAL NORM RATIO 0.9 (2.0-3.5)
[2020-02-09 07:17] LABS: FERRITIN 924.2 ng/mL (10.0-291.0); VITAMIN D, 25-HYDROXY 18.5 ng/mL (30-100)
--- NOTE | 2020-02-09 09:40 | NUR ---
DR BACK OFFICE WAS CONTACTED REGARDING THE PATIENT AND CONSULT ORDERED.
--- NOTE | 2020-02-09 09:48 | NUR ---
DR MCDERMOTT WAS CONTACTED. I SPOKE TO DR MCDERMOTT REGARDING THE PATIENT AND HE HAS BEEN MADE AWARE OF THE PATIENT. NO NEW ORDERS AT THIS TIME.
--- NOTE | 2020-02-09 10:15 | NUR ---
PATIENT RESTING AT THIS TIME IN POSITION OF COMFORT. CALL LIGHT IN REACH. PATIENT HAS NO COMPLAINTS AT THIS TIME. MEDICATED PER EMAR. WILL CONTINUE TO MONITOR PT. NS INFUSING.
--- NOTE | 2020-02-09 10:50 | NUR ---
LUNCH TRAY HAS BEEN ORDERED FOR THE PATIENT.
--- NOTE | 2020-02-09 11:29 | NUR ---
DR MCDERMOTT IN ROOM WITH PATIENT AT THIS TIME.
--- NOTE | 2020-02-09 12:30 | NUR ---
DR LANDEROS IN ROOM WITH PATIENT.
--- NOTE | 2020-02-09 12:47 | NUR ---
PATIENT RESTING AT THIS TIME. CALL LIGHT IN REACH.
--- NOTE | 2020-02-09 13:15 | NUR ---
PATIENT PLACED ON 2 LITERS OF OXYGEN VIA NASAL CANNULA TO MAINTAIN ABOVE 92%.
--- NOTE | 2020-02-09 13:41 | NUR ---
PATIENT RESTING AT THIS TIME.
--- NOTE | 2020-02-09 14:34 | NUR ---
surgical nurse is currently in the room with patient initiating the iv infusion .
[2020-02-09 14:49] LABS: ABG BASE EXCESS 1.2 mmol/L (-2.0-2.0); ARTERIAL BLOOD GAS PH 7.427 (7.35-7.45)
--- NOTE | 2020-02-09 15:20 | NUR ---
PATIENT RESTING AT THIS TIME. WILL CONTINUE TO MONITOR.
--- NOTE | 2020-02-09 16:45 | NUR ---
PATIENT OXYGEN LEVELS INCREASED TO 3 LPM VIA NASAL CANNULA TO MAINTAIN SPO2 ABOVE 92%
--- NOTE | 2020-02-09 16:55 | NUR ---
ATTEMPT TO CONTACT THE 4TH FLOOR. MARVIN WAS UNAVAILABLE AT THAT TIME.
--- NOTE | 2020-02-09 17:24 | NUR ---
ATTEMPTED TO CONTACT THE FLOOR REGARDING THE PATIENT AND TAKING HER UP. MARVIN WAS UNAVAILABLE AND I INFORMED THE INSURANCE SPECIALIST TO HAVE HER CALL WHEN SHE IS READY FOR THE PATIENT TO BE BROUGHT UP.
--- NOTE | 2020-02-09 18:40 | NUR ---
A 29, admitted to , under the services of CORAL Mason DO with a diagnosis of DYSPNEA R/T SUSPECTED COVID-19. Chief complaint is SOB. Patient arrived via wheel chair from ER. Monitor applied. Initial assessment completed. Vital signs taken and recorded. CORAL MASON DO notified of admission to the unit. Orders received. See assessment for past medical history, medications and allergies. Patient and/or family oriented to unit. [facility] visitation policy reviewed. Clothing/patient valuable form completed. MARVIN SWANSON
--- NOTE | 2020-02-09 18:40 | NUR ---
ZOFRAN GIVEN PER ORDER FOR COMPLAINTS OF NAUSEA. WILL MONITOR
--- NOTE | 2020-02-09 19:22 | NUR ---
DR. DE SOUZA NOTIFIED OF COMPLETE HOME MEDICATIONS
--- NOTE | 2020-02-09 19:35 | NUR ---
PER PT, ZOFRAN EFFECTIVE FOR NAUSEA
--- NOTE | 2020-02-09 21:30 | NUR ---
DR. DE SOUZA NOTIFIED OF PT COMPLAINT OF CHEST PAIN AND PALPATATIONS. ORDERED IV LOPRESSOR AND STAT EKG
--- NOTE | 2020-02-09 21:59 | NUR ---
DR. DE SOUZA NOTIFIED OF PT C/O ANXIETY. ATIVAN ORDERED AND GIVEN AT THIS TIME
--- NOTE | 2020-02-09 22:50 | NUR ---
ATIVAN NOT EFFECTIVE PER PT
--- NOTE | 2020-02-09 23:33 | NUR ---
DR. DE SOUZA NOTIFIED OF PT HR STILL IN 120'S. STATED HE WOULD PUT AN ORDER IN.
[2020-02-10] VITALS: BP 140/80
--- NOTE | 2020-02-10 00:06 | NUR ---
TYLENOL GIVEN PER ORDER FOR TEMP OF 103.0. RESTORIL GIVEN FOR C/O INSOMNIA. WILL MONITOR
--- NOTE | 2020-02-10 01:00 | NUR ---
RESTORIL EFFECTIVE. TYLENOL EFFECTIVE WELL. PT SLEEPING, TEMP DOWN TO 101.
[2020-02-10 01:09] LABS: ABG BASE EXCESS 1.2 mmol/L (-2.0-2.0); ARTERIAL BLOOD GAS PH 7.416 (7.35-7.45)
--- NOTE | 2020-02-10 01:15 | NUR ---
DR. DE SOUZA NOTIFIED OF PT HR IN 120'S. STATED THIS WAS A NORMAL RESPONSE FOR A VIRUS. STATED TO JUST WATCH PT. ALSO NOTIFIED PT TEMP 101. ORDERED NAPROXEN TO GIVE IN 1 HR.
--- NOTE | 2020-02-10 03:00 | NUR ---
PT SLEEPING AT THIS TIME. HR 100 PER CM. TOLERATING BIPAP WELL. CALL LIGHT WITHIN REACH
--- NOTE | 2020-02-10 05:09 | NUR ---
TYLENOL GIVEN PER ORDER FOR C/O HEADACHE. WILL MONITOR
--- NOTE | 2020-02-10 05:40 | NUR ---
PT OFF BIPAP AT THIS TIME
[2020-02-10 06:00] LABS: BASO % 0.1 % (0.0-1.0); MEAN CELL VOLUME 84.4 fl (81.0-99.0); MEAN CORPUSCULAR HGB 27.8 pg (27.0-31.0); MEAN CORPUSCULAR HGB CONC 32.9 g/dl (33.0-37.0); MEAN PLATELET VOLUME 9.4 fl (9.6-12.3); MONO # 0.2 10*3/uL (0.1-1.0); MONO % 2.2 % (3.0-9.0); NEUT # 8.3 10*3/uL (2.3-7.9); NEUT % 86.9 % (47.0-73.0); PLATELET COUNT AUTOMATED 250 10*3/uL (130-400); RED CELL DISTRI WIDTH 12.3 % (0-14.5); WHITE BLOOD COUNT 9.6 10*3/uL (4.8-10.8)
--- NOTE | 2020-02-10 06:00 | NUR ---
PER PT, TYLENOL EFFECTIVE
[2020-02-10 06:29] LABS: POTASSIUM 4.6 mmol/L (3.5-5.1)
[2020-02-10 06:35] LABS: CREATININE 1.9 mg/dL (0.55-1.02); TOTAL PROTEIN 6.2 gm/dL (6.4-8.2)
--- NOTE | 2020-02-10 06:45 | NUR ---
DR. DE SOUZA NOTIFIED OF CRITICAL BLOOD SUGAR 495. ORDERED TO GIVE 22 UNITS SLIDING SCALE CALLS FOR
[2020-02-10 08:00] VITALS: BP 117/75
[2020-02-10 08:36] LABS: ABG BASE EXCESS -3.3 mmol/L (-2.0-2.0); ARTERIAL BLOOD GAS PH 7.343 (7.35-7.45)
--- NOTE | 2020-02-10 10:45 | NUR ---
02 TITRATED DOWN TO 6L HIGH-FLOW. WILL CONTINUE TO MONITOR HR & PULSE OX. VSS. CALL LIGHT WITHIN REACH.
--- NOTE | 2020-02-10 11:30 | NUR ---
BLOOD SUGAR READING CRITICAL HIGH AT 416. REPEAT TEST 407. NOTIFIED.
[2020-02-10 12:00] VITALS: BP 116/80
[2020-02-10 16:00] VITALS: BP 108/60
--- NOTE | 2020-02-10 16:05 | NUR ---
BSG 395. 20 UNITS OF INSULIN GIVEN PER S/S. VSS. CALL LIGHT WITHIN REACH.
--- NOTE | 2020-02-10 16:06 | NUR ---
PULSE OX 98-99% VIA 6LNC HIGH-FLOW. WILL CONTINUE TO MONITOR HR & PULSE OX. CALL LIGHT WITHIN REACH.
[2020-02-10 20:00] VITALS: BP 115/72
--- NOTE | 2020-02-10 20:39 | NUR ---
24 HR chart check completed.
--- NOTE | 2020-02-10 21:00 | NUR ---
SITTING UP IN BED, NO DISTRESS NOTED. RESPIRATIONS EASY. LUNGS DIMINISHED. PULSE OX 96% 6L HIGH FLOW, CONT PULSE OX MAINTAINED. CALL LIGHT WITHIN REACH. NO VOICED COMPLAINTS
[2020-02-11] VITALS: BP 138/89
--- NOTE | 2020-02-11 | NUR ---
REMAINS AWAKE. RESPIRATIONS EASY. VSS. PULSE OX 96% 6L HIGH FLOW. CALL LIGHT WITHIN REACH. NO VOICED COMPLAINTS
--- NOTE | 2020-02-11 01:40 | NUR ---
patient requesting to be taken off bipap. 6l nc in use
--- NOTE | 2020-02-11 04:00 | NUR ---
SELF PRONING WITH O2 IN USE AT 6L HIGH FLOW
--- NOTE | 2020-02-11 04:00 | NUR ---
SELF PRONING WITH BI-PAP IN PLACE, PULSE OX 99%
[2020-02-11 05:59] LABS: BASO % 0.2 % (0.0-1.0); HEMATOCRIT 37.2 % (37.0-47.0); LYMPH # 1.1 10*3/uL (1.3-4.4); LYMPH % 12.5 % (27.0-41.0); MEAN CELL VOLUME 82.3 fl (81.0-99.0); MEAN CORPUSCULAR HGB 27.7 pg (27.0-31.0); MEAN CORPUSCULAR HGB CONC 33.6 g/dl (33.0-37.0); MEAN PLATELET VOLUME 9.6 fl (9.6-12.3); MONO # 0.5 10*3/uL (0.1-1.0); MONO % 6.2 % (3.0-9.0); NEUT # 6.9 10*3/uL (2.3-7.9); NEUT % 79.5 % (47.0-73.0); PLATELET COUNT AUTOMATED 300 10*3/uL (130-400); RED BLOOD COUNT 4.52 10*6/uL (4.10-5.10); RED CELL DISTRI WIDTH 11.9 % (0-14.5); WHITE BLOOD COUNT 8.7 10*3/uL (4.8-10.8)
[2020-02-11 06:05] LABS: CREATININE 1.37 mg/dL (0.55-1.02); POTASSIUM 4.1 mmol/L (3.5-5.1); TOTAL PROTEIN 6.2 gm/dL (6.4-8.2)
--- NOTE | 2020-02-11 07:00 | NUR ---
SELF PRONING WITH O2 IN USE AT 6L HIGH FLOW. RESPIRATIONS EASY. DENIES SOB. CALL LIGHT WITHIN REACH. NO VOICED COMPLAINTS
[2020-02-11 08:00] VITALS: BP 122/70
[2020-02-11 08:36] LABS: ABG BASE EXCESS 0.4 mmol/L (-2.0-2.0); ARTERIAL BLOOD GAS PH 7.425 (7.35-7.45)
[2020-02-11 12:00] VITALS: BP 115/44
--- NOTE | 2020-02-11 13:58 | NUR ---
Attempts x 3 to call Pt. in her Room to Complete Case Management Admission Assessment with no Answer. Pt. has been Proning per Nurses Notes and May not be able at this time to talk. Call Placed to Pt. Mother Karen and Left Voice Message with No return Call. Case Management will follow Pt. on Thursday.
[2020-02-11 16:00] VITALS: BP 133/76
[2020-02-11 20:00] VITALS: BP 119/67
--- NOTE | 2020-02-11 21:00 | NUR ---
PT SITTING UP IN BED. OXYGEN IN USE. BSG-354, SEE EMAR. CALL LIGHT IN REACH. NO C/O AT THSI TIME. SEE SHIFT ASSESSMENT.
--- NOTE | 2020-02-11 22:44 | NUR ---
PT REQUESTING SOMETHING TO HELPS SLEEP BEFORE SHE PUTS BIPAP ON AGAIN. MEDICATED WITH RESTORIL PO PER PRN ORDER, SEE EMAR. CALL LIGHT IN REACH.
[2020-02-12] VITALS: BP 127/76
--- NOTE | 2020-02-12 00:20 | NUR ---
RESTING IN BED. BIPAP IN USE. RESP-EASY AND REGULAR. CALL LIGHT IN REACH. SEE SHIFT ASSESSMENT.
[2020-02-12 06:22] LABS: HEMATOCRIT 37.3 % (37.0-47.0); MEAN CORPUSCULAR HGB 27.3 pg (27.0-31.0); MEAN CORPUSCULAR HGB CONC 33.2 g/dl (33.0-37.0); MEAN PLATELET VOLUME 9.8 fl (9.6-12.3); PLATELET COUNT AUTOMATED 377 10*3/uL (130-400); RED BLOOD COUNT 4.55 10*6/uL (4.10-5.10); WHITE BLOOD COUNT 11.5 10*3/uL (4.8-10.8)
[2020-02-12 06:41] LABS: CREATININE 1.27 mg/dL (0.55-1.02); TOTAL PROTEIN 6.3 gm/dL (6.4-8.2)
[2020-02-12 08:00] VITALS: BP 131/77
[2020-02-12 08:57] LABS: PLATELET SUFFICIENCY NORMAL (NORMAL); TOTAL CELLS COUNTED 100 #CELLS
--- NOTE | 2020-02-12 10:45 | NUR ---
PATIENT ON 5 L HI BEN NC IN THE PRONE POSITION, REFUSES BIPAP AT THIS TIME. HR 71 SPO2 97%.
[2020-02-12 12:00] VITALS: BP 119/72
[2020-02-12 16:00] VITALS: BP 126/74
[2020-02-12 20:00] VITALS: BP 129/78
--- NOTE | 2020-02-12 20:29 | NUR ---
24 HR chart check completed.
--- NOTE | 2020-02-12 21:00 | NUR ---
RESTING IN BED WATCHING TV WITH NO ACUTE DISTRESS NOTED. RESPIRATIONS EASY. LUNGS DIMINISHED. PULSE OX 94% 3L HIGH FLOW. CALL LIGHT WITHIN REACH. NO VOICED COMPLAINTS.
--- NOTE | 2020-02-12 22:30 | NUR ---
MEDICATED WITH RESTORIL PER PRN ORDER TO ASSIST WITH SLEEP. WILL MONITOR
--- NOTE | 2020-02-12 23:15 | NUR ---
MEDS NOT YET EFFECTIVE, REMAINS AWAKE
--- NOTE | 2020-02-13 | NUR ---
RESTING WITH EYES CLOSED AND BI-PAP IN USE, PULSE OX 99%. RESPIRATIONS EASY. VSS. CALL LIGHT WITHIN REACH
[2020-02-13 01:00] VITALS: BP 137/75
--- NOTE | 2020-02-13 02:00 | NUR ---
PATIENT CALLING OUT, REQUESTING BI-PAP BE REMOVED. O2 REAPPLIED AT 3L HIGH FLOW WITH CONT PULSE OX MAINTAINED. CALL LIGHT WITHIN REACH
--- NOTE | 2020-02-13 04:00 | NUR ---
SLEEPING. PULSE OX 98% 3L HIGH FLOW. CALL LIGHT WITHIN REACH
--- NOTE | 2020-02-13 06:00 | NUR ---
RESTED THROUGHOUT NIGHT WITH NO ACUTE DISTRESS. RESPIRATIONS EASY. O2 IN USE AT 3L HIGH FLOW. CALL LIGHT WITHIN REACH. NO VOICED COMPLAINTS THIS SHIFT
[2020-02-13 06:28] LABS: HEMATOCRIT 36.8 % (37.0-47.0); MEAN CELL VOLUME 81.8 fl (81.0-99.0); MEAN CORPUSCULAR HGB 26.9 pg (27.0-31.0); MEAN CORPUSCULAR HGB CONC 32.9 g/dl (33.0-37.0); MEAN PLATELET VOLUME 9.8 fl (9.6-12.3); PLATELET COUNT AUTOMATED 383 10*3/uL (130-400); RED CELL DISTRI WIDTH 11.9 % (0-14.5)
[2020-02-13 06:36] LABS: ALKALINE PHOSPHATASE 112 U/L (45-117); BUN 41 mg/dl (7-24); CHLORIDE 105 mmol/L (98-107); CREATININE 1.19 mg/dL (0.55-1.02); LDH 400 U/L (84-246); POTASSIUM 4.2 mmol/L (3.5-5.1); SGOT/AST 36 IU/L (3-35); SGPT/ALT 42 U/L (12-78); SODIUM 136 mmol/L (136-145); TOTAL PROTEIN 5.8 gm/dL (6.4-8.2)
[2020-02-13 06:39] LABS: CPK 45 U/L (26-192)
[2020-02-13 07:44] LABS: ATYPICAL LYMPHS 1 % (0-0); POLYCHROMASIA SLIGHT; TOTAL CELLS COUNTED 100 #CELLS
[2020-02-13 07:45] LABS: PLATELET SUFFICIENCY NORMAL (NORMAL)
[2020-02-13 08:00] VITALS: BP 124/73
--- NOTE | 2020-02-13 09:00 | NUR ---
Commercial Fisher in to talk to patient. Patient states lives at home with parents. There are no steps in the home. Physician: [facility] [place] [facility]: none Patient's level of ADLs: INDEPENDENT Patient has working utilities: all working DME: none Follow-up physician's appointment after d/c: will be made by hospitalist nurse director upon discharge Does patient want to access PORTAL?: no Discharge plan discussed with patient, she lives at home with parents, she is independent in adls and ambulation, she states she will return home when discharged and denies any home needs. case management will follow . IRISH HEWITT
[2020-02-13 12:00] VITALS: BP 132/68
--- NOTE | 2020-02-13 14:08 | NUR ---
PULSE OX ON 2L REST 95%. PULSE OX ON R/A AT REST 88%. B/P 120/68. HEART RATE 88. PT. PLACED ON 2L O2, SAT INCREASING TO 92 AT REST. PT. AMBULATING IN ROOM DUE TO ISOLATION, O2 SAT DECREASING TO 87%. HEART RATE 104. INCREASED O2 TO 3L, SAT 93%. PT. ABULATING IN ROOM WITH 3L SAT 91% HEART RATE 102. RECOVERY PULSE OX ON 3L, 93%, HEART RATE 82, B/P 142/83.
[2020-02-13] MEDS ORDERED: DECADRON6 M1 PO (14:23)
[2020-02-13 16:00] VITALS: BP 138/81
--- NOTE | 2020-02-13 19:45 | NUR ---
Discharge instructions reviewed with patient/family. Patient receptive and verbalizes understanding. Follow-up care arranged. Written instructions given to patient/family. VANDANA MANSFIELD
== END 2020-02-13 19:45 | disposition home or self-care (01) | DRG 137 ==
LOC: ED 15:16 → EDHOLD 19:06 → 4E 02-09 16:43 → EDHOLD 02-09 16:43 → 4E 02-09 16:43
PROVIDERS: Hospitalist; Internal Medicine Critical Care Medicine; Nurse Practitioner Family; Physician Assistant; Student in an Organized Health Care Education/Training Program; ADMIT Student in an Organized Health Care Education/Training Program; ATTEND Student in an Organized Health Care Education/Training Program
PROC: 5A0935A Assistance with Respiratory Ventilation, Less than 24 Consecutive Hours, High Flow/Velocity Cannula (ICD-10-PCS; principal; 2020-02-09)
PROC: 5A0945A Assistance with Respiratory Ventilation, 24-96 Consecutive Hours, High Flow/Velocity Cannula (ICD-10-PCS; 2020-02-10)
PROC: 5A0935A Assistance with Respiratory Ventilation, Less than 24 Consecutive Hours, High Flow/Velocity Cannula (ICD-10-PCS; 2020-02-13)
PROC: 5A09357 Assistance with Respiratory Ventilation, Less than 24 Consecutive Hours, Continuous Positive Airway Pressure (ICD-10-PCS; 2020-02-13)
DX: U07.1 COVID-19 (principal); K52.9 Noninfective gastroenteritis and colitis, unspecified; E43 Unspecified severe protein-calorie malnutrition; I13.10 Hypertensive heart and chronic kidney disease without heart failure, with stage 1 through stage 4 chronic kidney disease, or unspecified chronic kidney disease; Z20.828 Contact with and (suspected) exposure to other viral communicable diseases; E10.22 Type 1 diabetes mellitus with diabetic chronic kidney disease; N18.32 Chronic kidney disease, stage 3b; E10.65 Type 1 diabetes mellitus with hyperglycemia; N17.0 Acute kidney failure with tubular necrosis; J12.89 Other viral pneumonia; F17.210 Nicotine dependence, cigarettes, uncomplicated; J96.01 Acute respiratory failure with hypoxia; E66.01 Morbid (severe) obesity due to excess calories; D68.59 Other primary thrombophilia; E55.9 Vitamin D deficiency, unspecified; Z71.6 Tobacco abuse counseling; Z68.35 Body mass index [BMI] 35.0-35.9, adult; Z79.51 Long term (current) use of inhaled steroids; Z79.4 Long term (current) use of insulin; Z79.899 Other long term (current) drug therapy; Z98.891 History of uterine scar from previous surgery; Z98.51 Tubal ligation status; Z82.49 Family history of ischemic heart disease and other diseases of the circulatory system

== ENCOUNTER → 2020-07-25 | Outpatient (CLI) | payer OTHER ==
[~2020-07-25] MED LIST changes: +ATORVASTATIN CA40 M1 PO; +DECADRON6 M1 PO; +HYDROCHLOROTHIA25 M1 PO; +INSULIN LI100 UNIT/2 SQ; +LEVEMIR100 UNIT/1 SC; +LISINOPRIL20 MG PO; +PREDNISONE20 M1 PO
[2020-07-25 08:31] LABS: CREATININE 1.45 mg/dL (0.55-1.02); POTASSIUM 3.7 mmol/L (3.5-5.1); TOTAL PROTEIN 6.8 gm/dL (6.4-8.2)
[2020-07-25 08:38] LABS: FREE T4 0.95 ng/dl (0.76-1.46); THYROID STIM HORMONE (HS) 2.32 uIU/ml (0.358-4.75)
[2020-07-26 11:07] LABS: CREATININE,URINE 105.5 mg/dL (Not Estab.)
== END | disposition home or self-care (01) ==
LOC: LAB 07:34
PROVIDERS: ATTEND Nurse Practitioner
DX: E10.65 Type 1 diabetes mellitus with hyperglycemia (principal); E03.9 Hypothyroidism, unspecified; E78.2 Mixed hyperlipidemia

== ENCOUNTER → 2021-05-28 | Outpatient (CLI) | payer MEDICARE ==
[2021-05-28 08:53] LABS: TOTAL PROTEIN 7.2 gm/dL (6.4-8.2)
[2021-05-28 08:54] LABS: CREATININE 1.41 mg/dL (0.55-1.02); POTASSIUM 4.5 mmol/L (3.5-5.1)
== END | disposition home or self-care (01) ==
LOC: LAB 08:08
PROVIDERS: ATTEND Nurse Practitioner
DX: E10.65 Type 1 diabetes mellitus with hyperglycemia (principal); E78.5 Hyperlipidemia, unspecified

== ENCOUNTER → 2021-06-06 | Outpatient (CLI) | payer MEDICARE ==
[2021-06-06 09:08] LABS: CREATININE 1.62 mg/dL (0.55-1.02); POTASSIUM 4.1 mmol/L (3.5-5.1); TOTAL PROTEIN 7.2 gm/dL (6.4-8.2)
== END | disposition home or self-care (01) ==
LOC: LAB 08:11
PROVIDERS: ATTEND Nurse Practitioner
DX: E10.65 Type 1 diabetes mellitus with hyperglycemia (principal)

== ENCOUNTER 2021-07-07 12:38 | Emergency (ER) | payer MEDICARE ==
[~2021-07-07] VITALS: Ht 157.4 cm; Wt 99.8 kg
[2021-07-07 13:06] VITALS: BP 156/89
[2021-07-07] MEDS ORDERED: AUGMENTIN 875-875 MG PO (15:09)
[2021-07-07] MEDS ORDERED: AVPAK AZITHROM250 MG PO (15:09)
== END 2021-07-07 15:34 | disposition home or self-care (01) ==
LOC: ED 12:38
DX: J18.1 Lobar pneumonia, unspecified organism (principal); Z20.822 Contact with and (suspected) exposure to COVID-19; I12.9 Hypertensive chronic kidney disease with stage 1 through stage 4 chronic kidney disease, or unspecified chronic kidney disease; E10.22 Type 1 diabetes mellitus with diabetic chronic kidney disease; N18.30 Chronic kidney disease, stage 3 unspecified; Z79.899 Other long term (current) drug therapy

== ENCOUNTER → 2022-04-17 | Outpatient (CLI) | payer MEDICARE ==
[~2022-04-17] MED LIST changes: +AUGMENTIN 875-875 MG PO; +AVPAK AZITHROM250 MG PO
[2022-04-17 09:38] LABS: BASO # 0.1 10*3/uL (0.0-0.1); BASO % 0.7 % (0.0-1.0); EOS # 0.5 10*3/uL (0.0-0.4); EOS % 4.4 % (1.0-4.0); HEMATOCRIT 49.9 % (37.0-47.0); LYMPH # 3.1 10*3/uL (1.3-4.4); LYMPH % 27.8 % (27.0-41.0); MEAN CELL VOLUME 82.8 fl (81.0-99.0); MEAN CORPUSCULAR HGB 27.4 pg (27.0-31.0); MEAN CORPUSCULAR HGB CONC 33.1 g/dl (33.0-37.0); MEAN PLATELET VOLUME 8.9 fl (9.6-12.3); MONO # 0.5 10*3/uL (0.1-1.0); MONO % 4.6 % (3.0-9.0); NEUT % 62.1 % (47.0-73.0); PLATELET COUNT AUTOMATED 354 10*3/uL (130-400); RED BLOOD COUNT 6.03 10*6/uL (4.10-5.10); RED CELL DISTRI WIDTH 12.8 % (0-14.5); WHITE BLOOD COUNT 11.2 10*3/uL (4.8-10.8)
[2022-04-17 09:40] LABS: BILIRUBIN Negative (Negative); BLOOD Trace-Lysed (Negative); CLARITY Clear (Clear); COLOR Yellow (Yellow); GLUCOSE 3+ (Negative); KETONE Trace (Negative); LEUKO ESTERASE Negative (Negative); NITRITE Negative (Negative); PH 5.5 (4.5-8.0); SPECIFIC GRAVITY >= 1.030 (1.001-1.030); UROBILINOGEN 0.2 E.U./dl (0.0-1.0)
[2022-04-17 09:57] LABS: FREE T4 1.18 ng/dl (0.89-1.76); POTASSIUM 4.1 mmol/L (3.4-5.1); TOTAL PROTEIN 6.9 gm/dL (6.0-8.0)
[2022-04-17 10:48] LABS: VITAMIN D, 25-HYDROXY 32.4 ng/mL (30-100)
[2022-04-17 11:05] LABS: BACTERIA 3+
[2022-04-17 11:07] LABS: HYALINE CAST 0-2
== END | disposition home or self-care (01) ==
LOC: LAB 09:08
PROVIDERS: Internal Medicine; ATTEND Nurse Practitioner Women's Health
DX: N93.9 Abnormal uterine and vaginal bleeding, unspecified (principal); R53.83 Other fatigue; E55.9 Vitamin D deficiency, unspecified; E78.1 Pure hyperglyceridemia

== ENCOUNTER → 2022-05-06 | Outpatient (CLI) | payer MEDICARE | END | disposition home or self-care (01) | LOC: US 00:32 | PROVIDERS: ATTEND Nurse Practitioner Women's Health | DX: N88.8 Other specified noninflammatory disorders of cervix uteri (principal); N93.9 Abnormal uterine and vaginal bleeding, unspecified ==

== ENCOUNTER → 2024-09-01 | Outpatient (CLI) | payer MEDICARE ==
[2024-09-01 13:25] LABS: BASO # 0.1 10*3/uL (0.0-0.1); BASO % 0.6 % (0.0-1.0); EOS # 0.4 10*3/uL (0.0-0.4); EOS % 3.1 % (1.0-4.0); MEAN CELL VOLUME 85.5 fl (81.0-99.0); MEAN CORPUSCULAR HGB 28.9 pg (27.0-31.0); MEAN PLATELET VOLUME 9.1 fl (9.6-12.3); MONO # 0.7 10*3/uL (0.1-1.0); MONO % 5.3 % (3.0-9.0); NEUT # 8.4 10*3/uL (2.3-7.9); NEUT % 60.8 % (47.0-73.0); NUCLEATED RED BLOOD CELL 0.0 % (0.0-0.0); NUCLEATED RED BLOOD CELL 0.0 10*3/uL (0.0-0.0); PLATELET COUNT AUTOMATED 324 10*3/uL (130-400); RED CELL DISTRI WIDTH 12.4 % (0-14.5)
[2024-09-01 14:15] LABS: BUN 23.0 mg/dl (9-23); FREE T4 1.18 ng/dl (0.89-1.76); LDL CHOLESTEROL 106.0 mg/dL (9-159); SGPT/ALT 13.0 U/L (5-49)
[2024-09-01 14:49] LABS: VITAMIN D, 25-HYDROXY 35.0 ng/mL (30-100)
== END | disposition home or self-care (01) ==
LOC: LAB 12:46
PROVIDERS: ATTEND Internal Medicine
DX: E10.22 Type 1 diabetes mellitus with diabetic chronic kidney disease (principal); N18.9 Chronic kidney disease, unspecified; E55.9 Vitamin D deficiency, unspecified

== ENCOUNTER 2024-12-01 02:03 | Emergency (ER) | payer MEDICARE ==
[~2024-12-01] VITALS: Ht 154.9 cm; Wt 77.1 kg
[2024-12-01 02:12] VITALS: BP 146/90
[2024-12-01] MEDS ORDERED: VERAPAMIL HCL120 M2 PO (02:17)
[2024-12-01] MEDS ORDERED: LISDEXAMFETAMIN50 MG PO (02:17)
[2024-12-01] MEDS ORDERED: FARXIGA10 M1 PO (02:17)
[2024-12-01] MEDS ORDERED: CITALOPRAM10 MG PO (02:17)
[2024-12-01] MEDS ORDERED: LISINOPRIL10 M1 PO (02:19)
[2024-12-01] MEDS ORDERED: INSULIN LI100 UNIT/1 SC (02:19)
[2024-12-01 02:26] LABS: BASO # 0.1 10*3/uL (0.0-0.1); BASO % 0.5 % (0.0-1.0); EOS # 0.1 10*3/uL (0.0-0.4); EOS % 0.5 % (1.0-4.0); MEAN CELL VOLUME 84.2 fl (81.0-99.0); MEAN CORPUSCULAR HGB 28.4 pg (27.0-31.0); MEAN PLATELET VOLUME 8.5 fl (9.6-12.3); MONO # 0.6 10*3/uL (0.1-1.0); MONO % 4.3 % (3.0-9.0); NEUT # 9.7 10*3/uL (2.3-7.9); NEUT % 75.7 % (47.0-73.0); NUCLEATED RED BLOOD CELL 0.0 % (0.0-0.0); NUCLEATED RED BLOOD CELL 0.0 10*3/uL (0.0-0.0); PLATELET COUNT AUTOMATED 389 10*3/uL (130-400); RED CELL DISTRI WIDTH 12.5 % (0-14.5)
[2024-12-01 02:46] LABS: BUN 14.0 mg/dl (9-23)
[2024-12-01 02:47] LABS: BILIRUBIN Negative (Negative); BLOOD 1+ (Negative); CLARITY Cloudy (Clear); COLOR Yellow (Yellow); KETONE Trace (Negative); LEUKO ESTERASE Negative (Negative); NITRITE Negative (Negative); PH 5.5 (4.5-8.0); SPECIFIC GRAVITY >= 1.030 (1.001-1.030); UROBILINOGEN 0.2 E.U./dl (0.0-1.0)
[2024-12-01 02:53] LABS: EPITHELIAL CELLS 51-100
[2024-12-01 02:55] LABS: BACTERIA 1+
[2024-12-01 03:01] LABS: YEAST 1+
[2024-12-01] MEDS ORDERED: Ciprofloxacin Hydrochloride 500 MG TAB PO ONE (03:10)
[2024-12-01] MEDS ORDERED: POTASSIUM CHLORIDE 20 MEQ TAB PO ONE (03:10)
[2024-12-01] MEDS ORDERED: Ondansetron Hydrochloride 4 MG TAB SL ONE (03:10)
[2024-12-01] MEDS ORDERED: Ondansetron4 MG PO (03:17)
[2024-12-01] MEDS ORDERED: CIPRO500 MG PO (03:17)
== END 2024-12-01 03:27 | disposition home or self-care (01) ==
LOC: ED 02:03
PROVIDERS: Internal Medicine
DX: N39.0 Urinary tract infection, site not specified (principal); R11.2 Nausea with vomiting, unspecified; E87.6 Hypokalemia; D72.829 Elevated white blood cell count, unspecified; N18.31 Chronic kidney disease, stage 3a; D75.1 Secondary polycythemia; Z79.4 Long term (current) use of insulin; Z79.899 Other long term (current) drug therapy; Z98.890 Other specified postprocedural states; Z87.891 Personal history of nicotine dependence

== ENCOUNTER 2024-12-09 12:53 | Emergency (ER) | payer MEDICARE ==
[~2024-12-09] VITALS: Ht 154.9 cm; Wt 77.1 kg
[~2024-12-09 12:53] MED LIST changes: +CIPRO500 MG PO; +CITALOPRAM10 MG PO; +FARXIGA10 M1 PO; +INSULIN LI100 UNIT/1 SC; +LISDEXAMFETAMIN50 MG PO; +LISINOPRIL10 M1 PO; +Ondansetron4 MG PO; +VERAPAMIL HCL120 M2 PO
[2024-12-09 13:04] VITALS: BP 195/114
[2024-12-09] MEDS ORDERED: SODIUM CHLORIDE 0.9% 1,000 ML IV ONE ×2 (13:10→14:45)
[2024-12-09] MEDS ORDERED: Ondansetron Hydrochloride 4 MG/2 ML VIAL IV ONE (13:10)
[2024-12-09 13:25] LABS: BASO # 0.1 10*3/uL (0.0-0.1); BASO % 0.7 % (0.0-1.0); EOS # 0.1 10*3/uL (0.0-0.4); EOS % 0.8 % (1.0-4.0); MEAN CELL VOLUME 85.9 fl (81.0-99.0); MEAN CORPUSCULAR HGB 28.2 pg (27.0-31.0); MEAN PLATELET VOLUME 9.0 fl (9.6-12.3); MONO # 0.8 10*3/uL (0.1-1.0); MONO % 6.6 % (3.0-9.0); NEUT # 8.6 10*3/uL (2.3-7.9); NEUT % 72.9 % (47.0-73.0); NUCLEATED RED BLOOD CELL 0.0 % (0.0-0.0); NUCLEATED RED BLOOD CELL 0.0 10*3/uL (0.0-0.0); PLATELET COUNT AUTOMATED 293 10*3/uL (130-400); RED CELL DISTRI WIDTH 12.5 % (0-14.5)
[2024-12-09 13:28] LABS: VENOUS BLOOD GAS O2 SAT 90.8 % (60.0-85.0)
[2024-12-09 14:24] LABS: BUN 15.0 mg/dl (9-23)
[2024-12-09] MEDS ORDERED: INSULIN REGULAR, HUMAN 1 UNIT/0.01 ML IV ONE (14:35)
[2024-12-09] MEDS ORDERED: Ondansetron4 MG PO (14:59)
== END 2024-12-09 15:16 | disposition home or self-care (01) ==
LOC: ED 12:53
PROVIDERS: Emergency Medicine
DX: E11.9 Type 2 diabetes mellitus without complications (principal); R00.0 Tachycardia, unspecified; I10 Essential (primary) hypertension; Z98.51 Tubal ligation status

== ENCOUNTER 2025-01-02 05:13 | Emergency (ER) | payer MEDICARE ==
[~2025-01-02] VITALS: Ht 157.4 cm; Wt 77.1 kg
[2025-01-02 05:31] VITALS: BP 166/97
[2025-01-02] MEDS ORDERED: PENICILLIN V POTASSIUM 500 MG TAB PO ONE (05:40)
[2025-01-02] MEDS ORDERED: Acetaminophen/Hydrocodone 5 MG/325 MG TABLET PO ONE (05:40)
[2025-01-02] MEDS ORDERED: Ondansetron Hydrochloride 4 MG TAB SL ONE (05:40)
[2025-01-02] MEDS ORDERED: PENICILLIN VK500 MG PO (05:41)
== END 2025-01-02 05:45 | disposition home or self-care (01) ==
LOC: ED 05:13
DX: K02.9 Dental caries, unspecified (principal); K08.89 Other specified disorders of teeth and supporting structures; I12.9 Hypertensive chronic kidney disease with stage 1 through stage 4 chronic kidney disease, or unspecified chronic kidney disease; E11.22 Type 2 diabetes mellitus with diabetic chronic kidney disease; N18.2 Chronic kidney disease, stage 2 (mild); Z98.890 Other specified postprocedural states

== ENCOUNTER 2025-01-13 12:38 | Emergency (ER) | payer MEDICARE ==
[~2025-01-13] VITALS: Ht 157.4 cm; Wt 77.1 kg
[2025-01-13] MEDS ORDERED: hydrOXYzine hydrochloride 50 MG/ML VIAL IM ONE (13:10)
[2025-01-13 13:14] VITALS: BP 160/110
[2025-01-13 13:24] LABS: BASO # 0.1 10*3/uL (0.0-0.1); BASO % 0.7 % (0.0-1.0); EOS # 0.1 10*3/uL (0.0-0.4); EOS % 1.2 % (1.0-4.0); MEAN CELL VOLUME 83.3 fl (81.0-99.0); MEAN CORPUSCULAR HGB 28.6 pg (27.0-31.0); MEAN PLATELET VOLUME 8.7 fl (9.6-12.3); MONO # 0.7 10*3/uL (0.1-1.0); MONO % 6.1 % (3.0-9.0); NEUT # 8.7 10*3/uL (2.3-7.9); NEUT % 71.8 % (47.0-73.0); NUCLEATED RED BLOOD CELL 0.0 % (0.0-0.0); NUCLEATED RED BLOOD CELL 0.0 10*3/uL (0.0-0.0); PLATELET COUNT AUTOMATED 358 10*3/uL (130-400); RED CELL DISTRI WIDTH 12.2 % (0-14.5)
[2025-01-13 13:48] LABS: BUN 19.0 mg/dl (9-23)
[2025-01-13] MEDS ORDERED: HYDROXYZINE HCL25 MG PO (15:12)
== END 2025-01-13 15:15 | disposition home or self-care (01) ==
LOC: ED 12:38
PROVIDERS: Student in an Organized Health Care Education/Training Program
DX: F41.9 Anxiety disorder, unspecified (principal); E11.9 Type 2 diabetes mellitus without complications; Z79.4 Long term (current) use of insulin; Z79.899 Other long term (current) drug therapy; Z98.890 Other specified postprocedural states; Z87.891 Personal history of nicotine dependence